=== PATIENT | female | born 1945 ===

== ENCOUNTER 2018-01-14 14:07 | Inpatient (IN) ==
--- NOTE | 2018-01-14 15:10 | ED ---
HPI General Chief Complaint: Psychiatric Symptoms Stated Complaint: Pysch Eval/ACT [place] Time Seen by Provider: 01/14/18 14:52 History of Present Illness HPI Narrative: The patient was seen and examined in the presence of the nurse. This patient is brought in under police [employer] act. She has some dementia and depression. She apparently did not take her medications today. I think there is some sort of verbal argument with her resulting in a call to the authorities. In any event she comes in under [employer] act. She denies any specific physical complaint. She denies hallucination or suicidal ideation. She seems pleasantly confused. Symptom severity is mild. Duration 2 days. No alleviating factors. No exacerbating factors. Related Data Home Medications Medication Instructions Recorded Confirmed fluoxetine [Prozac] 01/14/18 01/14/18 Allergies Allergy/AdvReac Type Severity Reaction Status Date / Time No Known Allergies Allergy Unverified 01/14/18 15:01 Review of Systems ROS: all other systems reviewed are negative [facility] [place] Medical History Medical History Breast cancer (Acute) Surgical History Surgical History History of total left knee replacement (TKR) (Acute) Social History Social History Substance History: No History of Abuse Second Hand Smoke Exposure: No Smoking Status: Never smoker How Often Do You Have a Drink Containing Alcohol: Never Exam Narrative Exam Narrative: GENERAL: Well-nourished, well-developed patient in no apparent distress. SKIN: Focused skin assessment reveals no rash and nodules. Skin is Warm and dry. HEAD: Atraumatic. Normocephalic. EYES: Pupils equal and round. No scleral icterus. No injection or drainage. ENT: No nasal bleeding or discharge. Mucous membranes pink and moist. NECK: Trachea midline. No JVD. I put the box of the CARDIOVASCULAR: Regular rate and rhythm. No murmur appreciated. RESPIRATORY: No accessory muscle use. Clear to auscultation. Breath sounds equal bilaterally. GASTROINTESTINAL: Abdomen soft, non-tender, nondistended. Hepatic and splenic margins not palpable. MUSCULOSKELETAL: No obvious deformities. No clubbing. No cyanosis. No edema. NEUROLOGICAL: Awake and alert. No obvious cranial nerve deficits. Motor grossly within normal limits. Normal speech. PSYCHIATRIC: Appropriate mood and affect; insight and judgment reduced . Course Initial Documented Vital Signs Temperature 98.3 F 01/14/18 15:02 Pulse Rate 84 01/14/18 15:02 Respiratory Rate 18 01/14/18 15:02 Blood Pressure 145/66 H 01/14/18 15:02 Pulse Oximetry 99 01/14/18 15:02 Last Documented Vital Signs Temperature 98.3 F 01/14/18 15:02 Pulse Rate 84 01/14/18 15:02 Respiratory Rate 18 01/14/18 15:02 Blood Pressure 145/66 H 01/14/18 15:02 Pulse Oximetry 99 01/14/18 15:02 Medical Decision Making MDM Narrative Medical decision making narrative: I have ordered medical clearance workup to include labs and urine studies. She has normal vital signs and no physical complaints. Psych screen has been ordered and she is here under Chacko act Clear labs are normal. She is is medically stable as can be made. Patient has been evaluated by psychiatry and she will be a psychiatric admission. Medical Screen Exam Complete: Yes Emergency Medical Condition: Yes Medical Records Medical records reviewed: Yes I reviewed the patient's medical records. Lab Data Result diagrams: 01/14/18 15:42 01/14/18 15:42 Lab Results 01/14/18 01/14/18 01/14/18 Range/Units 15:42 15:42 17:25 WBC 5.2 (4.0-11.0) th/mm3 RBC 4.00 (4.00-5.30) mil/mm3 Hgb 11.9 (11.6-15.3) gm/dL Hct 37.2 (35.0-46.0) % MCV 93.1 (80.0-100.0) fL MCH 29.7 (27.0-34.0) pg MCHC 31.9 L (32.0-36.0) % RDW 14.3 (11.6-17.2) % Plt Count 275 (150-450) th/mm3 MPV 8.2 (7.0-11.0) fL Neut % (Auto) 73.2 H (16.0-70.0) % Lymph % (Auto) 16.5 (9.0-44.0) % [place] % (Auto) 7.0 (0.0-8.0) % Eos % (Auto) 2.8 (0.0-4.0) % Baso % (Auto) 0.5 (0.0-2.0) % Neut # (Auto) 3.8 (1.8-7.7) th/mm3 Lymph # (Auto) 0.9 L (1.0-4.8) th/mm3 [place] # (Auto) 0.4 (0.0-0.9) th/mm3 Eos # (Auto) 0.1 (0.0-0.4) th/mm3 Baso # (Auto) 0.0 (0.0-0.2) th/mm3 WBC Differential . Differential Comment Auto diff final Sodium 141 (136-145) meq/L Potassium 4.4 (3.5-5.1) meq/L Chloride 104 (98-107) meq/L Carbon Dioxide 31.9 (21.0-32.0) meq/L Anion Gap 5 (5-15) meq/L BUN 31 H (7-18) mg/dL Creatinine 1.08 H (0.50-1.00) mg/dL Estimated GFR 50 L (>89) mL/min Random Glucose 92 (74-106) mg/dL Calcium 9.2 (8.5-10.1) mg/dL Total Bilirubin 0.3 (0.2-1.0) mg/dL AST 18 (15-37) U/L ALT 17 (10-53) U/L Alkaline Phosphatase 82 (45-117) U/L Total Protein 7.2 (6.4-8.2) g/dL Albumin 3.5 (3.4-5.0) g/dL TSH 0.417 (0.358-3.740) uIU/mL Urine Opiates Screen Neg (Neg) Ur Barbiturates Screen Neg (Neg) Ur Amphetamines Screen Neg (Neg) U Benzodiazepines Scrn Pos H (Neg) Urine Cocaine Screen Neg (Neg) U Cannabinoids Screen Neg (Neg) Serum Alcohol Less than 3 (0-5) mg/dL Discharge Plan Discharge Disposition Patient Disposition: 30 Still Patient Discharge Details Diagnosis: Acute psychosis Physicians Team ED Provider: Juan Nova Primary Care Provider: UNKNOWN, Rxs /Orders / Referrals /Forms Prescriptions: No Action fluoxetine [Prozac] 10 mg Capsule RF: 0 Status ED Status: Medically Cleared
[2018-01-14 16:01] LABS: Baso % (Auto) 0.5 % (0.0-2.0); Eos # (Auto) 0.1 th/mm3 (0.0-0.4); Eos % (Auto) 2.8 % (0.0-4.0); Hematocrit 37.2 % (35.0-46.0); Hemoglobin 11.9 gm/dL (11.6-15.3); Lymph # (Auto) 0.9 th/mm3 (1.0-4.8); Lymph % (Auto) 16.5 % (9.0-44.0); Mean Corpuscular HGB Conc 31.9 % (32.0-36.0); Mean Corpuscular Hemoglobin 29.7 pg (27.0-34.0); Mean Corpuscular Volume 93.1 fL (80.0-100.0); Mean Platelet Volume 8.2 fL (7.0-11.0); Mono # (Auto) 0.4 th/mm3 (0.0-0.9); Neut # (Auto) 3.8 th/mm3 (1.8-7.7); Neut % (Auto) 73.2 % (16.0-70.0); Platelet Count 275 th/mm3 (150-450); Red Cell Distribution Width 14.3 % (11.6-17.2); White Blood Count 5.2 th/mm3 (4.0-11.0)
[2018-01-14 16:30] LABS: Albumin 3.5 g/dL (3.4-5.0); Anion Gap 5 meq/L (5-15); Aspartate Aminotransferase 18 U/L (15-37); Blood Urea Nitrogen 31 mg/dL (7-18); Calcium 9.2 mg/dL (8.5-10.1); Carbon Dioxide 31.9 meq/L (21.0-32.0); Chloride 104 meq/L (98-107); Glomerular Filtration Rate 50 mL/min (>89); Glucose,Random 92 mg/dL (74-106); Potassium 4.4 meq/L (3.5-5.1); Sodium 141 meq/L (136-145)
[2018-01-14 16:32] LABS: Alanine Aminotransferase 17 U/L (10-53)
[2018-01-14 16:41] LABS: Alkaline Phosphatase 82 U/L (45-117); Thyroid Stimulating Hormone 0.417 uIU/mL (0.358-3.740); Total Protein 7.2 g/dL (6.4-8.2)
[2018-01-14 17:59] LABS: Amphetamine Screen,Urine Neg (Neg); Barbiturate Screen,Urine Neg (Neg); Cannabinoid Screen,Urine Neg (Neg); Cocaine Screen,Urine Neg (Neg)
[2018-01-14 18:06] LABS: Opiate Screen,Urine Neg (Neg)
[2018-01-14] MEDS ORDERED: Haloperidol Decanoate Inj 50 MG/ML Ampul IM ONE (19:09)
[2018-01-14] MEDS ORDERED: Haloperidol Inj 5 MG/ML Ampul IM ONE (19:15)
--- NOTE | 2018-01-14 19:17 | ED ---
HPI - Psych - General Source: patient Mode of arrival: ambulatory Limitations: no limitations - History of Present Illness MD complaint: altered mental status Onset (ago): unknown - General Chief Complaint: Psychiatric Symptoms Stated Complaint: Pysch Eval/ACT [place] Time Seen by Provider: 01/14/18 14:52 - History of Present Illness HPI Narrative: This is a 72 year-old female who presents under a Chacko Act for reportedly being aggressive and violent towards her . She is previously unknown to this facility. Reviewed electronic medical record, labs, and discussed case with staff. Patient was evaluated in her room in [facility]. She was observed coming out of her room and approaching staff multiple times. Throughout the visit she has been grossly confused and intrusive. She keeps requesting to go home. Patient is a poor historian. She is oriented to self only. Her speech is rapid, organized but at times illogical. The volume is loud. Attempted to obtain collateral information however, there is no contact information available. She speaks loudly about her father in [place], which she does have an accent, however it is apropos to nothing which has been asked of her. She appears to be sundowning. Patient became agitated and unable to be redirected, she was given an ETO. (Laurie Caballero) - Related Data Home Medications Medication Instructions Recorded Confirmed fluoxetine [Prozac] 01/14/18 01/14/18 Allergies Allergy/AdvReac Type Severity Reaction Status Date / Time No Known Allergies Allergy Unverified 01/14/18 15:01 Review of Systems All other systems reviewed negative except as stated in HPI PMFSH - History History Provided By: Patient - Medical History Medical History: Medical History (Last Reviewed 01/14/18 @ 20:48 by KODY Palomo) Breast cancer - Surgical History Surgical History: Surgical History (Last Reviewed 01/14/18 @ 20:48 by KODY Palomo) History of total left knee replacement (TKR) - Tobacco History Second Hand Smoke Exposure: No Smoking Status: Never smoker - Alcohol History How Often Do You Have a Drink Containing Alcohol: Never - Substance Use History Substance History: No History of Abuse - Immunization History Tetanus Immunization: Unsure Psychiatric History - Psychiatric History unable to obtain (Laurie Caballero) Physical Exam - General Limitations: altered mental status General appearance: anxious, in distress - Expanded Neurological Exam Patient oriented to: Present: person - Psychiatric Psychiatric exam: Present: agitated, anxious Mental Status Examination Appearance: Disheveled Consciousness: Highly distractible Orientation: Person Motor Activity: Normal gait Speech: Pressured, Rapid Language: Perseveration (on going home) Fund of Knowledge: Poor Attention and Concentration: Inadequate Memory: Impaired Mood: Anxious, Irritable Affect: Anxious Thought Process & Associations: Goal directed (on going home), Loose associations Hallucination Type: Other (unable to assess) Delusion Type: Other (unable) Insight: Poor Judgment: Poor Initial Documented Vital Signs Temperature 98.3 F 01/14/18 15:02 Pulse Rate 84 01/14/18 15:02 Respiratory Rate 18 01/14/18 15:02 Blood Pressure 145/66 H 01/14/18 15:02 Pulse Oximetry 99 01/14/18 15:02 Last Documented Vital Signs Temperature 98.3 F 01/14/18 15:02 Pulse Rate 84 01/14/18 15:02 Respiratory Rate 18 01/14/18 15:02 Blood Pressure 145/66 H 01/14/18 15:02 Pulse Oximetry 99 01/14/18 15:02 MDM - Psych - Diagnosis (1) Dementia with behavioral disturbance Status: Acute - Lab Data Result diagrams: 01/14/18 15:42 01/14/18 15:42 - [facility] Narrative Medical decision making narrative: Given the patient's level of confusion and her witnessed agitation/aggression, I am admitting her to a locked inpatient unit for further evaluation and treatment as deemed necessary. She is being admitted under the Chacko Act. (Laurie Caballero) - Lab Data Lab Results 01/14/18 01/14/18 01/14/18 Range/Units 15:42 15:42 17:25 WBC 5.2 (4.0-11.0) th/mm3 RBC 4.00 (4.00-5.30) mil/mm3 Hgb 11.9 (11.6-15.3) gm/dL Hct 37.2 (35.0-46.0) % MCV 93.1 (80.0-100.0) fL MCH 29.7 (27.0-34.0) pg MCHC 31.9 L (32.0-36.0) % RDW 14.3 (11.6-17.2) % Plt Count 275 (150-450) th/mm3 MPV 8.2 (7.0-11.0) fL Neut % (Auto) 73.2 H (16.0-70.0) % Lymph % (Auto) 16.5 (9.0-44.0) % [place] % (Auto) 7.0 (0.0-8.0) % Eos % (Auto) 2.8 (0.0-4.0) % Baso % (Auto) 0.5 (0.0-2.0) % Neut # (Auto) 3.8 (1.8-7.7) th/mm3 Lymph # (Auto) 0.9 L (1.0-4.8) th/mm3 [place] # (Auto) 0.4 (0.0-0.9) th/mm3 Eos # (Auto) 0.1 (0.0-0.4) th/mm3 Baso # (Auto) 0.0 (0.0-0.2) th/mm3 WBC Differential . Differential Comment Auto diff final Sodium 141 (136-145) meq/L Potassium 4.4 (3.5-5.1) meq/L Chloride 104 (98-107) meq/L Carbon Dioxide 31.9 (21.0-32.0) meq/L Anion Gap 5 (5-15) meq/L BUN 31 H (7-18) mg/dL Creatinine 1.08 H (0.50-1.00) mg/dL Estimated GFR 50 L (>89) mL/min Random Glucose 92 (74-106) mg/dL Calcium 9.2 (8.5-10.1) mg/dL Total Bilirubin 0.3 (0.2-1.0) mg/dL AST 18 (15-37) U/L ALT 17 (10-53) U/L Alkaline Phosphatase 82 (45-117) U/L Total Protein 7.2 (6.4-8.2) g/dL Albumin 3.5 (3.4-5.0) g/dL TSH 0.417 (0.358-3.740) uIU/mL Urine Opiates Screen Neg (Neg) Ur Barbiturates Screen Neg (Neg) Ur Amphetamines Screen Neg (Neg) U Benzodiazepines Scrn Pos H (Neg) Urine Cocaine Screen Neg (Neg) U Cannabinoids Screen Neg (Neg) Serum Alcohol Less than 3 (0-5) mg/dL
[2018-01-14] MEDS ORDERED: Aluminum/Magnesium/Simethacone Susp 30 ML UDC PO PRN (19:19)
[2018-01-14] MEDS ORDERED: Acetaminophen 325 MG Tablet PO PRN (19:19)
[2018-01-15] MEDS ORDERED: Aluminum/Magnesium/Simethacone Susp 30 ML UDC PO PRN (10:41)
[2018-01-15 10:44] LABS: Calcium 9.2 mg/dL (8.5-10.1); Carbon Dioxide 30.9 meq/L (21.0-32.0); Potassium 4.4 meq/L (3.5-5.1)
[2018-01-15 10:47] LABS: Chol/HDL Ratio 4.29 Ratio; HDL Cholesterol 52.2 mg/dL (40.0-60.0)
--- NOTE | 2018-01-15 11:16 | P.HPPSY ---
Provisional Diagnosis Admission Date: January 14, 2018 19:18 Fontanelle I.: Alzheimer's disease with late onset, dementia with behavioral disturbances Competence Certification of Person's Competence To Provide Express and Informed Consent I have personally examined Meenu Burton, a person being served at [facility] on, January 15, 2018 1113. Express and informed consent means consent voluntarily given in writing, by a competent person, after sufficient explanation and disclosure of the subject matter involved to enable the person to make a knowing and willful decision without any element of force, fraud, deceit, duress, or other form of constraint or coercion. This person is 18 years of age or older, is not now known to be incompetent to consent to treatment with a guardian advocate, and does not have a health care surrogate or proxy currently making medical treatment decisions. I have found this person to be one of the following: [] Competent to provide express and informed consent, as defined above, for voluntary admission to this facility and is competent to provide express and informed consent for treatment. He/she has the consistent capacity to make well reasoned, willful, and knowing decisions concerning his or her medical or mental health treatment. The person fully and consistently understands the purpose of the admission for examination/placement and is fully capable of personally exercising all rights assured under [place]xxx] Incompetent to provide express and informed consent to voluntary admission , and this is incompetent to provide express and informed consent to treatment. The person must be transferred to involuntary status and a petition for a guardian advocate filed with the Circuit Court. [] Refusing to provide express and informed consent to voluntary admission but is competent to provide express and informed consent for treatment. The person must be discharged or transferred to involuntary status. Form shall be completed within 24 hours of a person's arrival at the receiving facility and filed in the clinical record of each person: 1. Admitted on a voluntary basis 2. Permitted to provide express and informed consent to his/her own treatment 3. Allowed to transfer from involuntary to voluntary status 4. Prior to permitting a person to consent to his or her own treatment after having been previously found incompetent to consent to treatment. History of Present Illness Capacity: Lacks capacity History of Present Illness: Patient is a 72-year-old female who comes here under Ch[place]o act by the [facility] dated 01/14/2018 at 12:51 PM that document reviewed states this is Micheal has dementia becomes aggravated and is not taking her medication very disoriented and unaware of what is going on around her getting violent with he believes she needs to be evaluated without being evaluated she can be danger to herself or others around her patient seen screen in the ED urine toxicology positive for benzodiazepines. Patient did need an DTO in the emergency department. At the present time patient standing quietly in the hallway patient seen with nurse Elida. Patient is alert female speaking some broken [place] she is intense with rapid pressured speech her volume was quite loud she is diffusely confused in all 4 spheres. Review of EMR shows no prior contact here. Reviewing of medical records showed the patient has an address [place] but there is no contact data available at this time. We have had an EKG done and it is abnormal we will have the hospitalist consult will us with at this point feel patient does not have capacity to make decisions concerning her care thus I will ask for health care surrogate and guardian advocate. We will refrain from any scheduled medications at this time. The only thing of the med reconciliation was a small dose of Prozac and we will put that on hold at the present time. Continue to try to reach family get some more information about this patient help us with diagnosis treatment and recommendations - Inpatient Certification I certify that the inpatient services were ordered in accordance with Medicare regulations governing the order. This includes certification that hospital inpatient services are reasonable and necessary and in the case of services not specified as inpatient-only under 42 CFR 419.22(n), that they are appropriately provided as inpatient services in accordance to with the 2-midnight benchmark under 43 CFR 412.3(e) I certify that inpatient psychiatric hospital services are medically necessary. Evaluation and treatment and/or diagnostic testing are expected to improve the patient's condition. The patient needs on a daily basis, active treatment furnished directly by or requiring the supervision of inpatient psychiatric facility personnel. Estimated Total Length of Stay (Days): 7 Plans for Post Hospital Care: Not yet determined Review of Systems unobtainable due to mental condition PMFSH - History History Provided By: Patient - Medical History Medical History: Medical History (Last Reviewed 01/14/18 @ 20:48 by KODY Palomo) Breast cancer - Surgical History Surgical History: Surgical History (Last Reviewed 01/14/18 @ 20:48 by KODY Palomo) History of total left knee replacement (TKR) - Tobacco History Second Hand Smoke Exposure: No Smoking Status: Never smoker - Alcohol History How Often Do You Have a Drink Containing Alcohol: Never - Substance Use History Substance History: No History of Abuse - Immunization History Tetanus Immunization: Unsure Quality Measures - Psychiatric History Psychological trauma history: Unknown at this time Violence risk to others in the last 6 months: Documentation of patient being violent towards Violence risk to self in the last 6 months: Low - Substance Abuse History Drug or alcohol use in the past 12 months: Unknown at this time - Patient Strengths Patient's strengths (minimum of 2): Patient verbal able access healthcare Medications and Allergies Active Medications: Active Medications Acetaminophen (Tylenol) 650 mg PO Q4H PRN PRN Reason: Pain 1-5 or Temp >101F Al Hydrox/Mg Hydrox/Simethicone (Mag-Al Plus Susp Liq) 30 ml PO Q6H PRN PRN Reason: DYSPEPSIA Al Hydrox/Mg Hydrox/Simethicone (Mag-Al Plus Susp Liq) 30 ml PO Q6H PRN PRN Reason: DYSPEPSIA Al Hydroxide/Mg Hydroxide (Milk Of Magnesia Liq) 30 ml PO Q12H PRN PRN Reason: Mild Constipation Diphenhydramine HCl (Benadryl) 50 mg PO HS PRN PRN Reason: INSOMNIA Allergies Allergy/AdvReac Type Severity Reaction Status Date / Time No Known Allergies Allergy Unverified 01/14/18 15:01 Home Medications Medication Instructions Recorded Confirmed Type fluoxetine [Prozac] 01/14/18 01/14/18 History Results - Labs CBC & Chem 7: 01/14/18 15:42 01/15/18 08:55 Labs: Laboratory Results - last 24 hr 01/14/18 01/14/18 01/14/18 15:42 15:42 17:25 WBC 5.2 RBC 4.00 Hgb 11.9 Hct 37.2 MCV 93.1 MCH 29.7 MCHC 31.9 L RDW 14.3 Plt Count 275 MPV 8.2 Neut % (Auto) 73.2 H Lymph % (Auto) 16.5 Smith % (Auto) 7.0 Eos % (Auto) 2.8 Baso % (Auto) 0.5 Neut # (Auto) 3.8 Lymph # (Auto) 0.9 L Smith # (Auto) 0.4 Eos # (Auto) 0.1 Baso # (Auto) 0.0 WBC Differential . Differential Comment Auto diff final Sodium 141 Potassium 4.4 Chloride 104 Carbon Dioxide 31.9 Anion Gap 5 BUN 31 H Creatinine 1.08 H Estimated GFR 50 L Random Glucose 92 Calcium 9.2 Total Bilirubin 0.3 AST 18 ALT 17 Alkaline Phosphatase 82 Total Protein 7.2 Albumin 3.5 Triglycerides Cholesterol LDL Cholesterol, Calc HDL Cholesterol Cholesterol/HDL Ratio TSH 0.417 Urine Opiates Screen Neg Ur Barbiturates Screen Neg Ur Amphetamines Screen Neg U Benzodiazepines Scrn Pos H Urine Cocaine Screen Neg U Cannabinoids Screen Neg Serum Alcohol Less than 3 01/15/18 08:55 WBC RBC Hgb Hct MCV MCH MCHC RDW Plt Count MPV Neut % (Auto) Lymph % (Auto) Smith % (Auto) Eos % (Auto) Baso % (Auto) Neut # (Auto) Lymph # (Auto) Smith # (Auto) Eos # (Auto) Baso # (Auto) WBC Differential Differential Comment Sodium 142 Potassium 4.4 Chloride 103 Carbon Dioxide 30.9 Anion Gap 8 BUN 23 H Creatinine 0.99 Estimated GFR 55 L Random Glucose 131 H Calcium 9.2 Total Bilirubin AST ALT Alkaline Phosphatase Total Protein Albumin Triglycerides 196 H Cholesterol 224 H LDL Cholesterol, Calc 133 H HDL Cholesterol 52.2 Cholesterol/HDL Ratio 4.29 TSH Urine Opiates Screen Ur Barbiturates Screen Ur Amphetamines Screen U Benzodiazepines Scrn Urine Cocaine Screen U Cannabinoids Screen Serum Alcohol Exam Vital signs: Vital Signs 01/14/18 15:02 01/14/18 20:30 01/15/18 06:14 Temperature 98.3 F 97.8 F 97.5 F L Pulse Rate 84 80 78 Respiratory Rate 18 17 17 Blood Pressure 145/66 H 156/74 H 160/67 H Pulse Oximetry 99 98 96 Intake & Output 01/14/18 01/15/18 01/15/18 18:59 06:59 18:59 Weight 79.379 kg 90.2 kg Other: Weight On Admission 90.2 kg Narrative: Patient seen walking and lui she is in no acute distress, she is in no respiratory distress, no complaints of chest pain or abdominal pain. Patient moving all 4 extremities without difficulty Mental Status Examination Appearance: Disheveled (Mildly) Consciousness: Alert, Highly distractible Orientation: Person Motor Activity: Normal gait Speech: Pressured, Rapid Language: Perseveration (on going home) Fund of Knowledge: Poor Attention and Concentration: Inadequate Memory: Impaired Mood: Anxious, Irritable Affect: Anxious Thought Process & Associations: Loose associations, Tangential Thought Content: Other (Disorganized) Hallucination Type: Other (unable to assess) Delusion Type: Other (unable) Suicidal Ideation: No Suicidal Plan: No Suicidal Intention: No Homicidal Ideation: No Homicidal Plan: No Homicidal Intention: No Insight: Poor Judgment: Poor Assessment and Plan - Assessment (1) Dementia in other diseases classified elsewhere with behavioral disturbance Code(s): F02.81 - Dementia in other diseases classified elsewhere with behavioral disturbance Status: Acute (2) Alzheimer's disease with late onset Code(s): G30.1 - Alzheimer's disease with late onset; F02.80 - Dementia in other diseases classified elsewhere without behavioral disturbance Status: Acute - Plan Plan: Estimated LOS: [] days Patient remains quite demented confused and somewhat labile. She does meet Chacko criteria I will do first opinion request second opinion I will also ask for health care surrogate and guardian advocate. She does have an abnormal EKG we will have hospitalist consult with that also. We will also attempt to reach patient's family to get further information about this lady Justification for Continued Inpatient Stay: At this time patient would decompensate a place to a lower level of care Discharge Planning: To be determined Request Healthcare Surrogate/Guardian Advocate?: Yes
[2018-01-15] MEDS ORDERED: Haloperidol Inj 5 MG/ML Ampul IM STA (12:35)
[2018-01-15] MEDS ORDERED: Haloperidol Inj 5 MG/ML Ampul ONE (15:13)
--- NOTE | 2018-01-15 15:33 | P.CONPSY ---
Provisional Diagnosis Admission Date: January 14, 2018 19:18 [place].: Alzheimer's disease with late onset, dementia with behavioral disturbances History of Present Illness Service: Psychiatry Primary Care Provider: UNKNOWN History of Present Illness: Patient is a 72-year-old female who comes here under Chacko act by the [facility] dated 01/14/2018 at 12:51 PM that document reviewed states this is Micheal has dementia becomes aggravated and is not taking her medication very disoriented and unaware of what is going on around her getting violent with he believes she needs to be evaluated without being evaluated she can be danger to herself or others around her patient seen screen in the ED urine toxicology positive for benzodiazepines. Patient did need an DTO in the emergency department. At the present time patient standing quietly in the hallway patient seen with nurse Elida. Patient is alert female speaking some broken Rwandan she is intense with rapid pressured speech her volume was quite loud she is diffusely confused in all 4 spheres. Review of EMR shows no prior contact here. Reviewing of medical records showed the patient has an address [place] but there is no contact data available at this time. We have had an EKG done and it is abnormal we will have the hospitalist consult will us with at this point feel patient does not have capacity to make decisions concerning her care thus I will ask for health care surrogate and guardian advocate. We will refrain from any scheduled medications at this time. The only thing of the med reconciliation was a small dose of Prozac and we will put that on hold at the present time. Continue to try to reach family get some more information about this patient help us with diagnosis treatment and recommendations The patient is a 72-year-old American woman, she is bilingual, but mostly Syriac speaker, with reported psychiatric history of dementia and bipolar disorder, who was brought to the hospital on the Chacko act due to aggressive behavior with her . Consulted to me for second opinion. On my psychiatric evaluation I find a patient that is quite disorganized, loud, cursing and voice and paranoid and grandiose statements in the unit. The patient states that she is going to sonu the hospital, that her father was the governor of [place], or her siblings are chief design branch, her kids are studying medicine in the [employer] [facility], that she has special connection and if she is is not discharged immediately we are going to pay the consequences. Patient is very disorganized, tangential, difficult to be redirected verbally. He has been refusing to eat and to take medications per [facility] - History History Provided By: Patient - Medical History Medical History: Medical History (Last Reviewed 01/14/18 @ 20:48 by KODY Palomo) Breast cancer - Surgical History Surgical History: Surgical History (Last Reviewed 01/14/18 @ 20:48 by KODY Palomo) History of total left knee replacement (TKR) - Tobacco History Second Hand Smoke Exposure: No Smoking Status: Never smoker - Alcohol History How Often Do You Have a Drink Containing Alcohol: Never - Substance Use History Substance History: No History of Abuse - Immunization History Tetanus Immunization: Unsure Medications and Allergies Active Medications: Active Medications Acetaminophen (Tylenol) 650 mg PO Q4H PRN PRN Reason: Pain 1-5 or Temp >101F Al Hydrox/Mg Hydrox/Simethicone (Mag-Al Plus Susp Liq) 30 ml PO Q6H PRN PRN Reason: DYSPEPSIA Al Hydrox/Mg Hydrox/Simethicone (Mag-Al Plus Susp Liq) 30 ml PO Q6H PRN PRN Reason: DYSPEPSIA Al Hydroxide/Mg Hydroxide (Milk Of Magnesia Liq) 30 ml PO Q12H PRN PRN Reason: Mild Constipation Diphenhydramine HCl (Benadryl) 50 mg PO HS PRN PRN Reason: INSOMNIA Allergies Allergy/AdvReac Type Severity Reaction Status Date / Time No Known Allergies Allergy Unverified 01/14/18 15:01 Home Medications Medication Instructions Recorded Confirmed Type fluoxetine [Prozac] 40 mg PO DAILY 01/14/18 01/15/18 History alprazolam [Xanax] 0.5 mg PO TID 01/15/18 01/15/18 History carvedilol [Coreg] 6.25 mg PO BID 01/15/18 01/15/18 History cyclobenzaprine 10 mg PO TID 01/15/18 01/15/18 History hydrocodone-acetaminophen 10 - 325 mg PO Q6HR 01/15/18 01/15/18 History losartan 50 mg PO DAILY 01/15/18 01/15/18 History metformin 500 mg PO DAILY 01/15/18 01/15/18 History omeprazole magnesium [Prilosec] 20 mg PO DAILY 01/15/18 01/15/18 History temazepam [Restoril] 30 mg PO DAILY 01/15/18 01/15/18 History Exam Vital signs: Vital Signs 01/14/18 20:30 01/15/18 06:14 Temperature 97.8 F 97.5 F L Pulse Rate 80 78 Respiratory Rate 17 17 Blood Pressure 156/74 H 160/67 H Pulse Oximetry 98 96 Intake & Output 01/14/18 01/15/18 01/15/18 18:59 06:59 18:59 Weight 79.379 kg 90.2 kg Other: Weight On Admission 90.2 kg Mental Status Examination Appearance: Disheveled (Mildly) Consciousness: Alert, Highly distractible Orientation: Person Motor Activity: Normal gait Speech: Pressured, Rapid Language: Perseveration (on going home) Fund of Knowledge: Poor Attention and Concentration: Inadequate Memory: Impaired Mood: Anxious, Irritable Affect: Anxious Thought Process & Associations: Loose associations, Tangential Thought Content: Other (Disorganized) Hallucination Type: Other (unable to assess) Delusion Type: Other (unable) Suicidal Ideation: No Suicidal Plan: No Suicidal Intention: No Homicidal Ideation: No Homicidal Plan: No Homicidal Intention: No Insight: Poor Judgment: Poor Assessment and Plan - Assessment (1) Dementia in other diseases classified elsewhere with behavioral disturbance Code(s): F02.81 - Dementia in other diseases classified elsewhere with behavioral disturbance Status: Acute (2) Alzheimer's disease with late onset Code(s): G30.1 - Alzheimer's disease with late onset; F02.80 - Dementia in other diseases classified elsewhere without behavioral disturbance Status: Acute - Plan Plan: I have seen and examined this patient, reviewed documentation, I agree and concur with Dr. Reynoso's assessment and plan. Justification for Continued Inpatient Stay: Patient will continue psychiatric hospitalization under the care of Dr. Reynoso Request Healthcare Surrogate/Guardian Advocate?: Yes
--- NOTE | 2018-01-15 16:02 | P.CON ---
History of Present Illness Service: [facility] Consult date: 01/15/18 Requesting Physician: Aleksandar Reynoso Reason for Consult: Abnormal EKG Primary Care Provider: UNKNOWN Chief Complaint: "Bugs crawling" History of Present Illness: Patient is a 72-year-old female with past medical history of dementia, breast cancer who initially came into the hospital under Chacko act by the police. Patient is not taking her medications and had a verbal argument with . She is now admitted to inpatient psychiatry and for further evaluation. Consulted for assistance with abnormal EKG Patient seen today. Very agitated and belligerent. Patient appears to be hallucinating telling me to "run away the bugs are all over crawling on the floor and into the ceiling and into the walhs." Vision alternating Wallisian and Estonian. She is very agitated and yelling. She was given multiple IM injections to calm her down but was unable to. Staff is transferring the patient is a 2700 into seclusion unit. Review of Systems unobtainable due to mental condition, unobtainable due to mental status PMFSH - History History Provided By: Patient - Medical / Surgical Hx Neg / Unobtainable Medical Problems Denied: Unable to Obtain - Medical History Medical History: Medical History (Last Reviewed 01/14/18 @ 20:48 by KODY Palomo) Breast cancer - Surgical History Surgical History: Surgical History (Last Reviewed 01/14/18 @ 20:48 by KODY Palomo) History of total left knee replacement (TKR) - Tobacco History Second Hand Smoke Exposure: No Smoking Status: Never smoker - Alcohol History How Often Do You Have a Drink Containing Alcohol: Never - Substance Use History Substance History: No History of Abuse - Immunization History Tetanus Immunization: Unsure Medications and Allergies Active Medications: Active Medications Acetaminophen (Tylenol) 650 mg PO Q4H PRN PRN Reason: Pain 1-5 or Temp >101F Al Hydrox/Mg Hydrox/Simethicone (Mag-Al Plus Susp Liq) 30 ml PO Q6H PRN PRN Reason: DYSPEPSIA Al Hydrox/Mg Hydrox/Simethicone (Mag-Al Plus Susp Liq) 30 ml PO Q6H PRN PRN Reason: DYSPEPSIA Al Hydroxide/Mg Hydroxide (Milk Of Magnesia Liq) 30 ml PO Q12H PRN PRN Reason: Mild Constipation Diphenhydramine HCl (Benadryl) 50 mg PO HS PRN PRN Reason: INSOMNIA Allergies Allergy/AdvReac Type Severity Reaction Status Date / Time No Known Allergies Allergy Unverified 01/14/18 15:01 Home Medications Medication Instructions Recorded Confirmed Type fluoxetine [Prozac] 40 mg PO DAILY 01/14/18 01/15/18 History alprazolam [Xanax] 0.5 mg PO TID 01/15/18 01/15/18 History carvedilol [Coreg] 6.25 mg PO BID 01/15/18 01/15/18 History cyclobenzaprine 10 mg PO TID 01/15/18 01/15/18 History hydrocodone-acetaminophen 10 - 325 mg PO Q6HR 01/15/18 01/15/18 History losartan 50 mg PO DAILY 01/15/18 01/15/18 History metformin 500 mg PO DAILY 01/15/18 01/15/18 History omeprazole magnesium [Prilosec] 20 mg PO DAILY 01/15/18 01/15/18 History temazepam [Restoril] 30 mg PO DAILY 01/15/18 01/15/18 History Physical Exam Vital signs: Vital Signs 01/14/18 20:30 01/15/18 06:14 Temperature 97.8 F 97.5 F L Pulse Rate 80 78 Respiratory Rate 17 17 Blood Pressure 156/74 H 160/67 H Pulse Oximetry 98 96 Intake & Output 01/14/18 01/15/18 01/15/18 18:59 06:59 18:59 Weight 79.379 kg 90.2 kg Other: Weight On Admission 90.2 kg Narrative: GENERAL: This is a well-nourished, well-developed patient, in no apparent distress. SKIN: Warm and dry. HEENT: Normocephalic. .Airway patent. NECK: Trachea midline.. MUSCULOSKELETAL: Extremities without clubbing, cyanosis, or edema. NEUROLOGICAL: Awake and alert. Normal speech. Agitated, yelling, grabbing, attempts to bite staff. Assessment and Plan - Plan Patient is a 72-year-old female with past medical history of dementia, breast cancer who initially came into the hospital under Chacko act by the police. Patient is not taking her medications and had a verbal argument with . She is now admitted to inpatient psychiatry and for further evaluation. Consulted for assistance with abnormal EKG Dementia with behavioral disturbance -Managed by psychiatry team -Severely agitated today. Abnormal EKG -Unknown history of ID, HTN, HLD -EKG reviewed sinus rhythm with intraventricular conduction delay, possible anterior myocardial infarction undetermined date. AVR with inverted T waves. LVH. -QTc 440 -Repeat EKG when patient is more cooperative -Repeat labs, ASA daily -Nitro PRN HLD -Lipid profile reviewed, ASCVD risk 14.6% -Will Start statin medication DVT prop early ambulation. Code Status: Full code Discussed Condition With: Patient, nursing Discharge Planning: DC disposition by primary team
[2018-01-15] MEDS ORDERED: Haloperidol Inj 5 MG/ML Ampul IM ONE (16:15)
[2018-01-15] MEDS ORDERED: Dextrose 50% in Water 50 ML Vial IV.PUSH PRN (18:33)
--- NOTE | 2018-01-15 19:29 | ECG ---
Date Performed: 01/15/2018 Time Performed: 10:10:07 PTAGE: 72 years EKG: Sinus rhythm INTRAVENTRICULAR CONDUCTION DELAY POSSIBLE ANTERIOR MYOCARDIAL INFARCTION , OF INDETERMINATE AGE ABN ORMAL ECG NO PREVIOUS TRACING DOCTOR: Dillon Mejia Interpretating Date/Time 01/15/2018 19:28:17
--- NOTE | 2018-01-15 19:51 | XR ---
EXAM DATE: 01/15/2018 7:48 PM EDT AGE/SEX: 72 years / Female INDICATIONS: Left hand swelling with no known injury. CLINICAL DATA: This is the patient's initial encounter. Patient reports that signs and symptoms have been present for 1 day and indicates a pain score of Nonresponsive. MEDICAL/SURGICAL HISTORY: None. None. COMPARISON: No prior exams available for comparison. FINDINGS: Bony structures are intact and in normal alignment. Diffuse osteopenia. Soft tissues are unremarkabl e. No radiopaque foreign bodies seen. CONCLUSION: The osseous structures the hand are grossly intact. Electronically signed by: Manoj Vela MD 01/15/2018 7:49 PM EDT
--- NOTE | 2018-01-15 19:52 | XR ---
EXAM DATE: 01/15/2018 7:49 PM EDT AGE/SEX: 72 years / Female INDICATIONS: Right hand swelling with no known injury. CLINICAL DATA: This is the patient's initial encounter. Patient reports that signs and symptoms have been present for 1 day and indicates a pain score of Nonresponsive. MEDICAL/SURGICAL HISTORY: None. None. COMPARISON: No prior exams available for comparison. FINDINGS: Bony structures are intact and in normal alignment. Diffuse osteopenia. There is some amorphous calc ification about capsule of the third digit MCP joint. Soft tissues are unremarkable. No radiopaque f oreign bodies seen. CONCLUSION: The osseous structures the hand are grossly intact. Electronically signed by: Manoj Vela MD 01/15/2018 7:50 PM EDT
[2018-01-15] MEDS: Insulin NovoLOG Aspart Correctional Sugar Inj SQ SCH (20:55)
--- NOTE | 2018-01-15 21:00 | XR ---
EXAM DATE: 01/15/2018 7:51 PM EDT AGE/SEX: 72 years / Female INDICATIONS: Right wrist swelling with no known injury. CLINICAL DATA: This is the patient's initial encounter. Patient reports that signs and symptoms have been present for 1 day and indicates a pain score of Nonresponsive. MEDICAL/SURGICAL HISTORY: None. None. COMPARISON: No prior exams available for comparison. FINDINGS: Bony structures are intact and in normal alignment. Joints are intact without dislocation or signifi cant arthropathy. Osseous density is normal. Soft tissues are unremarkable. No radiopaque foreign bodies seen. CONCLUSION: Negative examination Electronically signed by: Manoj Vela MD 01/15/2018 8:58 PM EDT
[2018-01-15] MEDS: Carvedilol 6.25 MG Tablet PO SCH (21:20)
[2018-01-15] MEDS ORDERED: Haloperidol Inj 5 MG/ML Ampul IM PRN (22:00)
[2018-01-16] MEDS: Pantoprazole Sodium 20 MG DR Tablet PO SCH (08:02)
[2018-01-16] MEDS: Carvedilol 6.25 MG Tablet PO SCH ×2 (08:02→20:18)
[2018-01-16] MEDS ORDERED: OMEPRAZOLE MAGNESIUM 20 MG PO SCH (09:00)
[2018-01-16] MEDS: Insulin NovoLOG Aspart Correctional Sugar Inj SQ SCH ×3 (09:36→20:16)
--- NOTE | 2018-01-16 13:45 | P.PNPSY ---
Subjective Remarks: Patient seen in her room with nurse less, patient compliant medications. Patient continues quite intense and labile speaking in mixed Bahraini/Dutch is markedly disorganized within the. He denies suicidality or voices.. She states she wants to go home to her . That he is waiting for her however staff as heard from that he is somewhat concerned about his coming home due to her violent aggressive behaviors towards I attempted to call him at [phone] in there is no answer. We will continue to attempt to reach him. I feel patient would benefit from a mood stabilizer/antipsychotic medication. Review of Systems All other systems reviewed negative except as stated in HPI Mental Status Examination Appearance: Disheveled (Mildly) Consciousness: Alert, Highly distractible Orientation: Person Motor Activity: Normal gait Speech: Pressured, Rapid Language: Perseveration (on going home) Fund of Knowledge: Poor Attention and Concentration: Inadequate Memory: Impaired Mood: Anxious, Irritable Affect: Anxious Thought Process & Associations: Loose associations, Tangential Thought Content: Other (Disorganized) Hallucination Type: Other (unable to assess) Delusion Type: Other (unable) Suicidal Ideation: No Suicidal Plan: No Suicidal Intention: No Homicidal Ideation: No Homicidal Plan: No Homicidal Intention: No Insight: Poor Judgment: Poor Assessment and Plan - Assessment (1) Dementia in other diseases classified elsewhere with behavioral disturbance Code(s): F02.81 - Dementia in other diseases classified elsewhere with behavioral disturbance Status: Acute (2) Alzheimer's disease with late onset Code(s): G30.1 - Alzheimer's disease with late onset; F02.80 - Dementia in other diseases classified elsewhere without behavioral disturbance Status: Acute - Plan Plan: Patient remained psychotic and confused, intrusive and labile with no significant insight will continue to attempt to reach patient's to get permission for medication Justification for Continued Inpatient Stay: At this time patient would decompensate a place to a lower level of care Discharge Planning: To be determined Request Healthcare Surrogate/Guardian Advocate?: Yes
--- NOTE | 2018-01-16 21:21 | ECG ---
Date Performed: 01/16/2018 Time Performed: 09:22:20 PTAGE: 72 years EKG: Sinus rhythm MARKED LEFT AXIS DEVIATION INTRAVENTRICULAR CONDUCTION DELAY ABNORMAL ECG PREVIOUS TRACING : 01/15/2018 10.10 Since the previous tracing, no significant change noted DOCTOR: Dillon Mejia Interpretating Date/Time 01/16/2018 21:19:11
[2018-01-17] MEDS: Insulin NovoLOG Aspart Correctional Sugar Inj SQ SCH ×3 (08:22→21:18)
[2018-01-17] MEDS: Pantoprazole Sodium 20 MG DR Tablet PO SCH (08:23)
[2018-01-17] MEDS: Carvedilol 6.25 MG Tablet PO SCH ×2 (08:23→21:16)
--- NOTE | 2018-01-17 11:52 | P.PNPSY ---
Subjective Remarks: Patient seen and lui with nurse Kaye, chart reviewed, at this time patient no behavior problems, she is focusing on discharge and wanting to return to her family. While she speaks broken Korean or understanding appears fairly good. Though her insight and processing social somewhat confusing. We will add Seroquel 25 mg noon and 8 PM Review of Systems All other systems reviewed negative except as stated in HPI Mental Status Examination Appearance: Disheveled (Mildly) Consciousness: Alert, Highly distractible Orientation: Person Motor Activity: Normal gait Speech: Pressured, Rapid Language: Perseveration (on going home) Fund of Knowledge: Poor Attention and Concentration: Inadequate Memory: Impaired Mood: Anxious, Irritable Affect: Anxious Thought Process & Associations: Loose associations, Tangential Thought Content: Other (Disorganized) Hallucination Type: Other (unable to assess) Delusion Type: Other (unable) Suicidal Ideation: No Suicidal Plan: No Suicidal Intention: No Homicidal Ideation: No Homicidal Plan: No Homicidal Intention: No Insight: Poor Judgment: Poor Assessment and Plan - Assessment (1) Dementia in other diseases classified elsewhere with behavioral disturbance Code(s): F02.81 - Dementia in other diseases classified elsewhere with behavioral disturbance Status: Acute (2) Alzheimer's disease with late onset Code(s): G30.1 - Alzheimer's disease with late onset; F02.80 - Dementia in other diseases classified elsewhere without behavioral disturbance Status: Acute - Plan Plan: Patient remains confused disoriented. No behavior problems at this time. She medication adjustment above Justification for Continued Inpatient Stay: At this time patient would decompensate a place to a lower level of care Discharge Planning: To be determined it appears family does not feel she can return home, in fact daughters feel that perhaps patient and her elderly both may need placement Request Healthcare Surrogate/Guardian Advocate?: Yes
--- NOTE | 2018-01-17 15:34 | P.PN ---
Subjective Interval history: Follow-up visit dementia, HTN, HLD. Patient seen and examined today. Portuguese- speaking. States she is from [place], originally and the she came from prominent family. States that she was to her about 50 years that she could not believe that this had happened to him. She is asking if he could call her to give her money while she is on the unit. Appears to be calm compared to prior visit. Denies pain and discomfort. Denies SOB/ dyspnea. Denies chest pain, palpitations, headaches, dizziness. Denies fevers, chills, n/v/d. Physical Exam Vital signs: Intake & Output 01/16/18 01/17/18 01/17/18 18:59 06:59 18:59 Weight 88 kg Narrative: GENERAL: This is a well-nourished, well-developed patient, in no apparent distress. SKIN: Warm and dry HEENT: Normocephalic. Pupils equal round and reactive. Nose without bleeding. Airway patent. NECK: Trachea midline. CARDIOVASCULAR: Regular rate and rhythm without murmurs, gallops, or rubs. RESPIRATORY: Clear to auscultation. Breath sounds equal bilaterally. No wheezes , rales, or rhonchi. GASTROINTESTINAL: Abdomen soft, non-tender, nondistended. Bowel Sounds normoactive x4. MUSCULOSKELETAL: Extremities without clubbing, cyanosis, or edema. NEUROLOGICAL: Awake and alert. Oriented to place, person. Moves all extremities. Normal speech. Results - Labs CBC & Chem 7: 01/14/18 15:42 01/15/18 21:46 Laboratory Results - last 24 hr 01/16/18 01/16/18 01/17/18 16:33 19:45 05:55 POC Glucose 108 108 113 H 01/17/18 07:57 POC Glucose 131 H Assessment and Plan - Plan Patient is a 72-year-old female with past medical history of dementia, breast cancer who initially came into the hospital under Chacko act by the police. Patient is not taking her medications and had a verbal argument with . She is now admitted to inpatient psychiatry and for further evaluation. Consulted for assistance with abnormal EKG Dementia with behavioral disturbance -Managed by psychiatry team -Calm and cooperative HTN HLD -Lipid profile reviewed, ASCVD risk 14.6% -Continue Lipitor -Continue home medication Coreg, aspirin, losartan 50 mg clonidine as needed -BP has improved. DM2 on metformin use at home, no insulin -Continue metformin -Insulin sliding scale. Monitor Accu-Cheks. -HgA1C 6.0 Abnormal EKG -EKG reviewed sinus rhythm with intraventricular conduction delay, possible anterior myocardial infarction undetermined date. AVR with inverted T waves. LVH. -Repeat EKG sinus rhythm with marked left axis deviation, no significant change compared to previous EKG -Denies symptomatology -Maintain BP DVT prop early ambulation Stable from Hospitalist standpoint. We will sign off. Reconsult as needed. Code Status: Full code Discussed Condition With: Patient, nursing Discharge Planning: DC disposition by primary team
[2018-01-17] MEDS: QUEtiapine 25 MG Tablet PO SCH ×2 (15:53→20:00)
[2018-01-18] MEDS: Insulin NovoLOG Aspart Correctional Sugar Inj SQ SCH ×4 (07:23→21:13)
[2018-01-18] MEDS: Carvedilol 6.25 MG Tablet PO SCH ×2 (08:58→21:30)
[2018-01-18] MEDS: Pantoprazole Sodium 20 MG DR Tablet PO SCH (08:58)
[2018-01-18] MEDS: QUEtiapine 25 MG Tablet PO SCH ×2 (11:31→21:30)
--- NOTE | 2018-01-18 13:41 | P.PNPSY ---
Subjective Remarks: Patient is seen in day room with floor staff, chart review, patient compliant medication. Patient continues superficially pleasant with me diffusely confused. No behavior problem. Chi is discharged to go back to her and family's. Patient still with no insight into her behaviors that led to this hospitalization. For now continue treatment Review of Systems All other systems reviewed negative except as stated in HPI Mental Status Examination Appearance: Disheveled (Mildly) Consciousness: Alert, Highly distractible Orientation: Person Motor Activity: Normal gait Speech: Pressured, Rapid Language: Perseveration (on going home) Fund of Knowledge: Poor Attention and Concentration: Inadequate Memory: Impaired Mood: Anxious, Irritable Affect: Anxious Thought Process & Associations: Loose associations, Tangential Thought Content: Other (Disorganized) Hallucination Type: Other (unable to assess) Delusion Type: Other (unable) Suicidal Ideation: No Suicidal Plan: No Suicidal Intention: No Homicidal Ideation: No Homicidal Plan: No Homicidal Intention: No Insight: Poor Judgment: Poor Assessment and Plan - Assessment (1) Dementia in other diseases classified elsewhere with behavioral disturbance Code(s): F02.81 - Dementia in other diseases classified elsewhere with behavioral disturbance Status: Acute (2) Alzheimer's disease with late onset Code(s): G30.1 - Alzheimer's disease with late onset; F02.80 - Dementia in other diseases classified elsewhere without behavioral disturbance Status: Acute - Plan Plan: Patient continues confused demented though no behavior problems at the present time, compliant medications. For now continue treatment Justification for Continued Inpatient Stay: At this time patient would decompensate a place to a lower level of care Discharge Planning: Continue to work with patient's family related to placement issues Request Healthcare Surrogate/Guardian Advocate?: Yes
[2018-01-19] MEDS: Insulin NovoLOG Aspart Correctional Sugar Inj SQ SCH ×4 (07:19→21:12)
[2018-01-19] MEDS: Pantoprazole Sodium 20 MG DR Tablet PO SCH (08:36)
[2018-01-19] MEDS: Carvedilol 6.25 MG Tablet PO SCH ×2 (08:37→21:07)
[2018-01-19] MEDS: QUEtiapine 25 MG Tablet PO SCH ×2 (12:52→21:06)
--- NOTE | 2018-01-19 15:33 | P.PNPSY ---
Subjective Remarks: Patient was seen and case discussed with nursing. Interview conducted in Korean. Patient is confused during the interview. Thought process is quite tangential. She is alert and oriented 2. She is behaving well on the unit. No aggressive behaviors or outbursts. Compliant with medications Mental Status Examination Appearance: Disheveled (Mildly) Consciousness: Alert, Highly distractible Orientation: Person, Place Motor Activity: Normal gait Speech: Pressured, Rapid Language: Perseveration (on going home) Fund of Knowledge: Poor Attention and Concentration: Inadequate Memory: Impaired Mood: Anxious, Irritable Affect: Anxious Thought Process & Associations: Loose associations, Tangential Thought Content: Other (Disorganized) Hallucination Type: Other (unable to assess) Delusion Type: Other (unable) Suicidal Ideation: No Suicidal Plan: No Suicidal Intention: No Homicidal Ideation: No Homicidal Plan: No Homicidal Intention: No Insight: Poor Judgment: Poor Assessment and Plan - Assessment (1) 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
[2018-01-20] MEDS: Insulin NovoLOG Aspart Correctional Sugar Inj SQ SCH ×4 (07:01→20:54)
[2018-01-20] MEDS: Carvedilol 6.25 MG Tablet PO SCH ×2 (08:41→20:58)
[2018-01-20] MEDS: Pantoprazole Sodium 20 MG DR Tablet PO SCH (08:42)
[2018-01-20] MEDS: QUEtiapine 25 MG Tablet PO SCH ×2 (12:39→20:53)
--- NOTE | 2018-01-20 13:49 | P.PNPSY ---
Subjective Remarks: Patient was seen and case discussed with nursing. Patient is pleasant and cooperative with exam. Interview conducted in Maori. Thought process is loose. She says she is in good spirits and denies suicidal or homicidal ideation intent. He alert and oriented 2. Behaving well on the unit and social with others Mental Status Examination Appearance: Disheveled (Mildly) Consciousness: Alert, Highly distractible Orientation: Person, Place Motor Activity: Normal gait Speech: Pressured, Rapid Language: Perseveration (on going home) Fund of Knowledge: Poor Attention and Concentration: Inadequate Memory: Impaired Mood: Anxious, Irritable Affect: Anxious Thought Process & Associations: Loose associations Thought Content: Other (Disorganized) Hallucination Type: Other (unable to assess) Delusion Type: Other (unable) Suicidal Ideation: No Suicidal Plan: No Suicidal Intention: No Homicidal Ideation: No Homicidal Plan: No Homicidal Intention: No Insight: Poor Judgment: Poor Assessment and Plan - Assessment (1) 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
[2018-01-21] MEDS: Carvedilol 6.25 MG Tablet PO SCH ×2 (09:23→21:07)
[2018-01-21] MEDS: Pantoprazole Sodium 20 MG DR Tablet PO SCH (09:26)
[2018-01-21] MEDS: Insulin NovoLOG Aspart Correctional Sugar Inj SQ SCH ×3 (12:20→21:00)
[2018-01-21] MEDS: QUEtiapine 25 MG Tablet PO SCH ×2 (14:53→21:07)
--- NOTE | 2018-01-21 15:29 | P.PNPSY ---
Subjective Remarks: Patient seen and examined with nurse in coverage for Dr. Reynoso. Chart reviewed. Case discussed with nursing staff who reports patient has been no behavioral problem so far today, although nursing staff does report that she was somewhat agitated over the weekend, for example twisting nurses arm. On my examination today, the patient is discharged focused. She is somewhat affectively labile. She is somewhat intrusive. She remains confused. No side effects from medications. No physical complaints. Per receptionist secretary, patient's family did call in today, and I have asked the receptionist secretary to forward these messages to Dr. Reynoso who is more familiar with the case. I did not speak with patient's family today. Vital Signs Temp Pulse Resp BP Pulse Ox 01/21/18 06:00 97.7 F 82 18 139/63 95 01/20/18 18:42 97.9 F 81 16 139/74 98 Laboratory Results - last 24 hr 01/20/18 01/20/18 01/21/18 18:01 20:09 06:34 POC Glucose 101 83 107 01/21/18 11:44 POC Glucose 201 H Labs reviewed. Review of Systems other (Limitation: Poor historian) Mental Status Examination Appearance: Other (Fair grooming) Consciousness: Alert, Vigilant Orientation: Person, Place Motor Activity: Normal gait Speech: Rapid Language: Perseveration (on going home) Fund of Knowledge: Poor Attention and Concentration: Inadequate Memory: Impaired Mood: Anxious Affect: Anxious Thought Process & Associations: Circumstantial (In setting of dementia) Thought Content: Preoccupations Hallucination Type: None Delusion Type: None Suicidal Ideation: No Homicidal Ideation: No Insight: Poor Judgment: Poor Assessment and Plan - Assessment (1) Alzheimer's disease with late onset Code(s): G30.1 - Alzheimer's disease with late onset; F02.80 - Dementia in other diseases classified elsewhere without behavioral disturbance Status: Acute - Plan Plan: Continue current psychotropic medications as ordered. Continue to monitor on the inpatient unit. Continue other medications and care as ordered. Justification for Continued Inpatient Stay: Risk for decompensation in less restrictive environment. Discharge Planning: Per Dr. Reynoso Request Healthcare Surrogate/Guardian Advocate?: Yes (1) Alzheimer's disease with late onset Qualifiers: Dementia behavioral disturbance: with behavioral disturbance Qualified Code(s ): G30.1 - Alzheimer's disease with late onset; F02.81 - Dementia in other diseases classified elsewhere with behavioral disturbance
[2018-01-22] MEDS: Insulin NovoLOG Aspart Correctional Sugar Inj SQ SCH ×3 (09:23→16:37)
[2018-01-22] MEDS: Carvedilol 6.25 MG Tablet PO SCH (09:25)
[2018-01-22] MEDS: Pantoprazole Sodium 20 MG DR Tablet PO SCH (09:26)
--- NOTE | 2018-01-22 11:19 | P.DSPSY ---
Psychiatry Discharge Summary Inpatient Psychiatric care?: Yes Advance Directives: Unknown Reason for Unknown:: Due to Patient Condition Mental Health Advance Directive: No Health Care Proxy: No - Admission Admission Date: January 14, 2018 19:18 - Admission Diagnosis (1) Dementia in other diseases classified elsewhere with behavioral disturbance Code(s): F02.81 - Dementia in other diseases classified elsewhere with behavioral disturbance (2) Alzheimer's disease with late onset Code(s): G30.1 - Alzheimer's disease with late onset; F02.80 - Dementia in other diseases classified elsewhere without behavioral disturbance Brief History: Patient is a 72-year-old female who comes here under Chacko act by the [facility] dated 01/14/2018 at 12:51 PM that document reviewed states this is Micheal has dementia becomes aggravated and is not taking her medication very disoriented and unaware of what is going on around her getting violent with he believes she needs to be evaluated without being evaluated she can be danger to herself or others around her patient seen screen in the ED urine toxicology positive for benzodiazepines. Patient did need an DTO in the emergency department. At the present time patient standing quietly in the hallway patient seen with nurse Elida. Patient is alert female speaking some broken Urdu she is intense with rapid pressured speech her volume was quite loud she is diffusely confused in all 4 spheres. Review of EMR shows no prior contact here. Reviewing of medical records showed the patient has an [place] but there is no contact data available at this time. We have had an EKG done and it is abnormal we will have the hospitalist consult will us with at this point feel patient does not have capacity to make decisions concerning her care thus I will ask for health care surrogate and guardian advocate. We will refrain from any scheduled medications at this time. The only thing of the med reconciliation was a small dose of Prozac and we will put that on hold at the present time. Continue to try to reach family get some more information about this patient help us with diagnosis treatment and recommendations Tobacco Use In Past 30 Days: No How Often Do You Have a Drink Containing Alcohol: Never Hospital Course: Patient's hospital course was uneventful. Cognitive deficits persisted though patient shows some mild improvement in her processing. With her compliance with the medication there is no significant sundowning behaviors. Though there is some mild irritability towards evening. She was redirectable. She has been compliant with medication. Denies suicidality homicidality voice or visions. At this time the family feel she has reached maximum benefit of this hospitalization is been communication with the patient's children. Thus patient will be discharged today to return home with her . Her has medical issues and does have home health care. We will also order home health care for this patient and also follow-up with mental health care - Discharge Discharge Date: 01/22/18 - Discharge Diagnosis (1) Dementia in other diseases classified elsewhere with behavioral disturbance Diagnosis: Principal Code(s): F02.81 - Dementia in other diseases classified elsewhere with behavioral disturbance Status: Acute (2) Alzheimer's disease with late onset Diagnosis: Principal Code(s): G30.1 - Alzheimer's disease with late onset; F02.80 - Dementia in other diseases classified elsewhere without behavioral disturbance Status: Acute Discharge Disposition: Home - Discharge Instructions Discharge Diet: Regular Diet Activities You Can Perform: Regular- No Restrictions - Discharge Time > 30 minutes Mental Status Examination Appearance: Other (Fair grooming) Consciousness: Alert, Vigilant Orientation: Person, Place Motor Activity: Normal gait Speech: Rapid Language: Perseveration (on going home) Fund of Knowledge: Poor Attention and Concentration: Inadequate Memory: Impaired Mood: Anxious Affect: Anxious Thought Process & Associations: Circumstantial (In setting of dementia) Thought Content: Preoccupations Hallucination Type: None Delusion Type: None Suicidal Ideation: No Suicidal Plan: No Suicidal Intention: No Homicidal Ideation: No Homicidal Plan: No Homicidal Intention: No Insight: Poor Judgment: Poor Discharge/Advance Care Plan - Results Vital Signs: Last Vital Signs Temp 98.4 F 01/22/18 05:57 Pulse 89 01/22/18 05:57 Resp 17 01/22/18 05:57 BP 152/74 H 01/22/18 05:57 Pulse Ox 99 01/22/18 05:57 Lab Results: Abnormal Lab Results 01/21/18 01/21/18 01/22/18 11:44 21:31 07:45 POC Glucose 201 H 104 129 H Laboratory Results Hemoglobin A1c 6.0 % (4.3-6.0) 01/15/18 08:55 Triglycerides 196 mg/dL (42-150) H 01/15/18 08:55 Cholesterol 224 mg/dL (120-200) H 01/15/18 08:55 LDL Cholesterol, Calc 133 mg/dL (0-99) H 01/15/18 08:55 HDL Cholesterol 52.2 mg/dL (40.0-60.0) 01/15/18 08:55 TSH 0.417 uIU/mL (0.358-3.740) 01/14/18 15:42 Summary of Procedures: None done Imaging: ITS Impressions Hand X-Ray 01/15/18 00:00 CONCLUSION: The osseous structures the hand are grossly intact. Wrist X-Ray 01/15/18 00:00 CONCLUSION: Negative examination Pending Results: None - Medications Number of antipsychotic medications at discharge: 1 - Discharge Care Plan Goals to Promote Your Health: * To prevent worsening of your condition and complications * To maintain your health at the optimal level Directions to Meet Your Goals: Take your medications as prescribed Follow your dietary instruction Follow activity as directed Keep your appointments as scheduled Take your immunizations and boosters as scheduled If your symptoms worsen call your PCP, if no PCP go to Urgent Care Center or Emergency Room For 18/12 questions related to your inpatient stay or results of tests pending at discharge, please contact Dr. Aleksandar Reynoso MD at Smoking is Dangerous to Your Health. Avoid second hand smoking (2) Alzheimer's disease with late onset Qualifiers: Dementia behavioral disturbance: with behavioral disturbance Qualified Code(s ): G30.1 - Alzheimer's disease with late onset; F02.81 - Dementia in other diseases classified elsewhere with behavioral disturbance (2) Alzheimer's disease with late onset Qualifiers: Dementia behavioral disturbance: with behavioral disturbance Qualified Code(s ): G30.1 - Alzheimer's disease with late onset; F02.81 - Dementia in other diseases classified elsewhere with behavioral disturbance
[2018-01-22] MEDS: QUEtiapine 25 MG Tablet PO SCH (12:05)
== END 2018-01-22 17:15 | disposition home or self-care (01) ==
LOC: NEPD 14:07 → NEDA 19:18 → H260 20:38 → H270 01-15 15:38 → H260 01-20 15:49
PROVIDERS: ADMIT Psychiatry & Neurology Psychiatry; ATTEND Psychiatry & Neurology Psychiatry

== ENCOUNTER 2018-03-16 20:46 | Inpatient (IN) ==
[2018-03-16] MEDS ORDERED: QUEtiapine 25 MG Tablet PO ONE (21:41)
[2018-03-16 22:20] LABS: Baso % (Auto) 0.7 % (0.0-2.0); Eos # (Auto) 0.2 th/mm3 (0.0-0.4); Hematocrit 39.4 % (35.0-46.0); Hemoglobin 12.8 gm/dL (11.6-15.3); Lymph # (Auto) 0.9 th/mm3 (1.0-4.8); Lymph % (Auto) 15.9 % (9.0-44.0); Mean Corpuscular HGB Conc 32.4 % (32.0-36.0); Mean Corpuscular Hemoglobin 30.3 pg (27.0-34.0); Mean Corpuscular Volume 93.4 fL (80.0-100.0); Mono # (Auto) 0.4 th/mm3 (0.0-0.9); Mono % (Auto) 7.7 % (0.0-8.0); Neut # (Auto) 4.2 th/mm3 (1.8-7.7); Neut % (Auto) 71.7 % (16.0-70.0); Platelet Count 271 th/mm3 (150-450); Red Blood Count 4.22 mil/mm3 (4.00-5.30); Red Cell Distribution Width 13.8 % (11.6-17.2); White Blood Count 5.9 th/mm3 (4.0-11.0)
--- NOTE | 2018-03-16 22:29 | ED ---
HPI General Chief Complaint: Psychiatric Symptoms Stated Complaint: Psych Screen Time Seen by Provider: 03/16/18 21:05 Source: patient and police Mode of arrival: ambulatory Limitations: no limitations History of Present Illness HPI Narrative: This is a 73-year-old female who presents emergency department under Chacko act. Patient suffers from Alzheimer's type dementia. She became agitated and physically aggressive at home. Police were notified. She was placed under a Chacko act and brought in for evaluation. The patient here speaks between Slovenian and Yakut at times. She states that she intends on contacting Alex or Alex regarding social issues at home with her . The patient has been seen in the ER for similar type presentations in the past. She does not appear to be suffering from any acute illness or injury. A complete meaningful history is unobtainable. Related Data Home Medications Medication Instructions Recorded Confirmed alprazolam [Xanax] 0.5 mg PO TID 01/15/18 03/16/18 hydrocodone-acetaminophen 10 - 325 mg PO Q6HR 01/15/18 03/16/18 carvedilol [Coreg] 6.25 mg PO BID 03/16/18 03/16/18 diclofenac sodium 75 mg PO BID 03/16/18 03/16/18 fluoxetine 40 mg PO DAILY 03/16/18 03/16/18 metformin 500 mg PO DAILY 03/16/18 03/16/18 metoprolol tartrate 50 mg PO BID 03/16/18 03/16/18 nystatin [Nystop] TOPICAL QID 03/16/18 omeprazole 20 mg PO DAILY 03/16/18 03/16/18 quetiapine [Seroquel] 200 PO HS 03/16/18 Previous Rx's Medication Instructions Recorded aspirin 81 mg PO DAILY #30 tab 01/22/18 atorvastatin 20 mg PO DAILY #30 tab 01/22/18 losartan 50 mg PO DAILY #30 tab 01/22/18 Allergies Allergy/AdvReac Type Severity Reaction Status Date / Time No Known Allergies Allergy Unverified 03/16/18 20:51 Review of Systems ROS Unobtainable ROS Unobtainable: unobtainable due to mental condition PMFSH Medical History Medical History Breast cancer (Acute) Surgical History Surgical History History of total left knee replacement (TKR) (Acute) Social History Social History Substance History: No History of Abuse Second Hand Smoke Exposure: No Smoking Status: Never smoker How Often Do You Have a Drink Containing Alcohol: Never Recent Travel in [facility] within the Last 8 Weeks: No Recent Out of Country Travel within the Last 8 Weeks: No Immunization History Tetanus Immunization: Unsure Exam Narrative Exam Narrative: GENERAL: Well-nourished, well-developed patient. SKIN: Warm and dry. HEAD: Normocephalic and atraumatic. EYES: No scleral icterus. No injection or drainage. ENT: No nasal drainage noted. Mucous membranes pink. Airway patent. NECK: Supple, trachea midline. Moves head freely without obvious discomfort. CARDIOVASCULAR: Regular rate and rhythm without murmurs, gallops, or rubs. RESPIRATORY: Breath sounds equal bilaterally. No accessory muscle use. GASTROINTESTINAL: Abdomen soft, non-tender, nondistended. EXTREMITIES: No cyanosis or edema. BACK: Nontender without obvious deformity. No CVA tenderness. NEURO: Patient is alert and oriented to person. The patient is pleasantly confused. no sensorimotor deficits. Nonfocal. Normal speech. Course Initial Documented Vital Signs Temperature 98.0 F 03/16/18 20:52 Pulse Rate 87 03/16/18 20:52 Respiratory Rate 18 03/16/18 20:52 Blood Pressure 138/80 03/16/18 20:52 Pulse Oximetry 99 03/16/18 20:52 Last Documented Vital Signs Temperature 98.0 F 03/16/18 22:07 Pulse Rate 86 03/16/18 22:07 Respiratory Rate 15 03/16/18 22:07 Blood Pressure 139/88 03/16/18 22:07 Pulse Oximetry 98 03/16/18 22:07 Medical Decision Making MDM Narrative Medical decision making narrative: We will obtain routine laboratory testing for medical clearance. Patient will be given Seroquel 50 mg p.o. for her agitation Medical Screen Exam Complete: Yes Emergency Medical Condition: Yes Differential Diagnosis Differential Diagnosis: MDM: High Differential diagnoses: Schizophrenia, schizoaffective disorder, bipolar, anxiety, depression, adjustment reaction, mood disorder NOS, ODD, depressive disorder NOS, dementia, dementia with agitation, psychosis NOS, substance induced mood disorder, infection,electrolyte abnormality, malingering. Mental health screening discussed with the patient. Psychiatric screen ordered. Lab Data Result diagrams: 03/16/18 21:00 03/16/18 21:00 Lab Results 03/16/18 03/16/18 03/16/18 Range/Units 21:00 21:00 23:15 WBC 5.9 (4.0-11.0) th/mm3 RBC 4.22 (4.00-5.30) mil/mm3 Hgb 12.8 (11.6-15.3) gm/dL Hct 39.4 (35.0-46.0) % MCV 93.4 (80.0-100.0) fL MCH 30.3 (27.0-34.0) pg MCHC 32.4 (32.0-36.0) % RDW 13.8 (11.6-17.2) % Plt Count 271 (150-450) th/mm3 MPV 8.0 (7.0-11.0) fL Neut % (Auto) 71.7 H (16.0-70.0) % Lymph % (Auto) 15.9 (9.0-44.0) % Harvey % (Auto) 7.7 (0.0-8.0) % Eos % (Auto) 4.0 (0.0-4.0) % Baso % (Auto) 0.7 (0.0-2.0) % Neut # (Auto) 4.2 (1.8-7.7) th/mm3 Lymph # (Auto) 0.9 L (1.0-4.8) th/mm3 Harvey # (Auto) 0.4 (0.0-0.9) th/mm3 Eos # (Auto) 0.2 (0.0-0.4) th/mm3 Baso # (Auto) 0.0 (0.0-0.2) th/mm3 WBC Differential . Differential Comment Auto diff final Sodium 143 (136-145) meq/L Potassium 4.6 (3.5-5.1) meq/L Chloride 109 H (98-107) meq/L Carbon Dioxide 28.8 (21.0-32.0) meq/L Anion Gap 5 (5-15) meq/L BUN 16 (7-18) mg/dL Creatinine 1.08 H (0.50-1.00) mg/dL Estimated GFR 50 L (>89) mL/min Random Glucose 93 (74-106) mg/dL Calcium 9.5 (8.5-10.1) mg/dL Magnesium 1.8 (1.5-2.5) mg/dL Total Bilirubin 0.3 (0.2-1.0) mg/dL AST 18 (15-37) U/L ALT 20 (10-53) U/L Alkaline Phosphatase 96 (45-117) U/L Total Protein 7.6 (6.4-8.2) g/dL Albumin 3.8 (3.4-5.0) g/dL TSH 0.488 (0.358-3.740) uIU/mL Urine Color (Yellw/Straw) Urine Clarity (Clear) Urine pH (5.0-8.5) Ur Specific Sanborn (1.002-1.035) Urine Protein (Neg-Trace) mg/dL Urine Glucose (UA) (Negative) mg/dL Urine Ketones (Negative) mg/dL Urine Occult Blood (Negative) Urine Nitrate (Negative) Urine Bilirubin (Negative) Urine Urobilinogen (Less than 2) mg/dL Ur Leukocyte Esterase (Negative) Urine RBC (0-3) /hpf Urine WBC (0-5) /hpf Urine WBC Clumps (None) Ur Squamous Epith Cells (0-5) /hpf Amorphous Sediment (None) /hpf Urine Bacteria (None) /hpf Urine Mucus (Occasional) /lpf Micro UA Comment Ur Microscopic Review Urine Culture Comments Urine Opiates Screen Neg (Neg) Ur Barbiturates Screen Neg (Neg) Ur Amphetamines Screen Neg (Neg) U Benzodiazepines Scrn Pos H (Neg) Urine Cocaine Screen Neg (Neg) U Cannabinoids Screen Neg (Neg) Serum Alcohol Less than 3 (0-5) mg/dL 03/16/18 Range/Units 23:15 WBC (4.0-11.0) th/mm3 RBC (4.00-5.30) mil/mm3 Hgb (11.6-15.3) gm/dL Hct (35.0-46.0) % MCV (80.0-100.0) fL MCH (27.0-34.0) pg MCHC (32.0-36.0) % RDW (11.6-17.2) % Plt Count (150-450) th/mm3 MPV (7.0-11.0) fL Neut % (Auto) (16.0-70.0) % Lymph % (Auto) (9.0-44.0) % Harvey % (Auto) (0.0-8.0) % Eos % (Auto) (0.0-4.0) % Baso % (Auto) (0.0-2.0) % Neut # (Auto) (1.8-7.7) th/mm3 Lymph # (Auto) (1.0-4.8) th/mm3 Harvey # (Auto) (0.0-0.9) th/mm3 Eos # (Auto) (0.0-0.4) th/mm3 Baso # (Auto) (0.0-0.2) th/mm3 WBC Differential Differential Comment Sodium (136-145) meq/L Potassium (3.5-5.1) meq/L Chloride (98-107) meq/L Carbon Dioxide (21.0-32.0) meq/L Anion Gap (5-15) meq/L BUN (7-18) mg/dL Creatinine (0.50-1.00) mg/dL Estimated GFR (>89) mL/min Random Glucose (74-106) mg/dL Calcium (8.5-10.1) mg/dL Magnesium (1.5-2.5) mg/dL Total Bilirubin (0.2-1.0) mg/dL AST (15-37) U/L ALT (10-53) U/L Alkaline Phosphatase (45-117) U/L Total Protein (6.4-8.2) g/dL Albumin (3.4-5.0) g/dL TSH (0.358-3.740) uIU/mL Urine Color Yellow (Yellw/Straw) Urine Clarity Cloudy H (Clear) Urine pH 5.0 (5.0-8.5) Ur Specific Sanborn 1.010 (1.002-1.035) Urine Protein Negative (Neg-Trace) mg/dL Urine Glucose (UA) Negative (Negative) mg/dL Urine Ketones Negative (Negative) mg/dL Urine Occult Blood Negative (Negative) Urine Nitrate Positive H (Negative) Urine Bilirubin Negative (Negative) Urine Urobilinogen Less than 2 (Less than 2) mg/dL Ur Leukocyte Esterase Large H (Negative) Urine RBC 4 H (0-3) /hpf Urine WBC (0-5) /hpf Urine WBC Clumps Many H (None) Ur Squamous Epith Cells 1 (0-5) /hpf Amorphous Sediment Rare H (None) /hpf Urine Bacteria Many H (None) /hpf Urine Mucus Few H (Occasional) /lpf Micro UA Comment Culture indicated Ur Microscopic Review Not Reportable Urine Culture Comments Culture indicated Urine Opiates Screen (Neg) Ur Barbiturates Screen (Neg) Ur Amphetamines Screen (Neg) U Benzodiazepines Scrn (Neg) Urine Cocaine Screen (Neg) U Cannabinoids Screen (Neg) Serum Alcohol (0-5) mg/dL Discharge Plan Discharge Disposition Patient Disposition: 30 Still Patient Discharge Condition Condition: Stable Physicians Team ED Provider: Neelima Morgan ED Midlevel Provider: Artis Patricio Primary Care Provider: UNKNOWN, Rxs /Orders / Referrals /Forms Prescriptions: No Action fluoxetine 40 mg Capsule 40 mg PO DAILY RF: 0 quetiapine [Seroquel] 200 mg Tablet 200 PO HS RF: 0 omeprazole 20 mg Capsule,Delayed Release(Dr/Ec) 20 mg PO DAILY RF: 0 diclofenac sodium 75 mg Tablet,Delayed Release (Dr/Ec) 75 mg PO BID RF: 0 metformin 500 mg tablet 500 mg PO DAILY RF: 0 carvedilol [Coreg] 6.25 mg tablet 6.25 mg PO BID RF: 0 metoprolol tartrate 50 mg Tablet 50 mg PO BID RF: 0 nystatin [Nystop] 100,000 unit/gram Powder Topical QID RF: 0 hydrocodone-acetaminophen 10-325 mg Tablet 10 - 325 mg PO Q6HR RF: 0 alprazolam [Xanax] 0.5 mg Tablet 0.5 mg PO TID RF: 0 atorvastatin 20 mg Tablet 20 mg PO DAILY Qty: 30 RF: 0 aspirin 81 mg Tablet,Delayed Release (Dr/Ec) 81 mg PO DAILY Qty: 30 RF: 0 losartan 50 mg Tablet 50 mg PO DAILY Qty: 30 RF: 0 Status ED Status: Medically Cleared
[2018-03-16 22:57] LABS: Albumin 3.8 g/dL (3.4-5.0); Anion Gap 5 meq/L (5-15); Aspartate Aminotransferase 18 U/L (15-37); Blood Urea Nitrogen 16 mg/dL (7-18); Calcium 9.5 mg/dL (8.5-10.1); Carbon Dioxide 28.8 meq/L (21.0-32.0); Chloride 109 meq/L (98-107); Glomerular Filtration Rate 50 mL/min (>89); Glucose,Random 93 mg/dL (74-106); Magnesium 1.8 mg/dL (1.5-2.5); Potassium 4.6 meq/L (3.5-5.1); Sodium 143 meq/L (136-145)
[2018-03-16 23:08] LABS: Alanine Aminotransferase 20 U/L (10-53); Alkaline Phosphatase 96 U/L (45-117); Thyroid Stimulating Hormone 0.488 uIU/mL (0.358-3.740); Total Protein 7.6 g/dL (6.4-8.2)
[2018-03-17 00:18] LABS: Amorphous Sediment,Urine Rare /hpf; Amphetamine Screen,Urine Neg (Neg); Bacteria,Urine Many /hpf; Barbiturate Screen,Urine Neg (Neg); Bilirubin,Urine Negative (Negative); Cannabinoid Screen,Urine Neg (Neg); Clarity,Urine Cloudy (Clear); Cocaine Screen,Urine Neg (Neg); Color,Urine Yellow (Yellw/Straw); Glucose,Urine (UA) Negative (Negative); Leukocyte Esterase,Urine Large (Negative); Mucus,Urine Few /lpf (Occasional); Nitrite,Urine Positive (Negative); Squamous Epithelial Cell,Urine 1 /hpf (0-5)
[2018-03-17 00:31] LABS: Opiate Screen,Urine Neg (Neg)
[2018-03-17] MEDS ORDERED: Bisacodyl 10 MG Supp RECTAL PRN (08:49)
[2018-03-17] MEDS ORDERED: Aluminum/Magnesium/Simethacone Susp 30 ML UDC PO PRN (08:49)
[2018-03-17] MEDS: Carvedilol 6.25 MG Tablet PO SCH ×2 (11:55→20:51)
[2018-03-17] MEDS: Senna/Docusate Sodium 8.6/50 MG Tablet PO SCH ×2 (12:08→20:51)
[2018-03-18 06:26] LABS: Calcium 8.9 mg/dL (8.5-10.1); Carbon Dioxide 30.6 meq/L (21.0-32.0); Chol/HDL Ratio 3.57 Ratio; HDL Cholesterol 48.9 mg/dL (40.0-60.0); Potassium 3.4 meq/L (3.5-5.1)
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
[2018-03-18] MEDS ORDERED: Dextrose 50% in Water 50 ML Vial IV.PUSH PRN (10:42)
[2018-03-18] MEDS: Carvedilol 6.25 MG Tablet PO SCH ×2 (10:44→20:20)
[2018-03-18] MEDS: Senna/Docusate Sodium 8.6/50 MG Tablet PO SCH ×2 (10:44→20:20)
[2018-03-18] MEDS: Insulin NovoLOG Aspart Correctional Sugar Inj SQ SCH ×3 (11:11→23:10)
[2018-03-18] MEDS ORDERED: Haloperidol Inj 5 MG/ML Ampul IM PRN (11:12)
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
[2018-03-18 16:26] LABS: Hemoglobin A1c 5.9 % (4.3-6.0)
[2018-03-18] MEDS: QUEtiapine 25 MG Tablet PO SCH (23:08)
[2018-03-19 07:14] LABS: Calcium 8.9 mg/dL (8.5-10.1); Carbon Dioxide 29.4 meq/L (21.0-32.0); Magnesium 1.6 mg/dL (1.5-2.5)
[2018-03-19] MEDS: Insulin NovoLOG Aspart Correctional Sugar Inj SQ SCH ×4 (08:05→21:48)
[2018-03-19] MEDS: Pantoprazole Sodium 20 MG DR Tablet PO SCH (08:40)
[2018-03-19] MEDS: Senna/Docusate Sodium 8.6/50 MG Tablet PO SCH ×2 (08:40→20:24)
[2018-03-19] MEDS: Carvedilol 6.25 MG Tablet PO SCH ×2 (08:41→20:24)
[2018-03-19] MEDS: QUEtiapine 25 MG Tablet PO SCH ×2 (08:41→20:25)
--- NOTE | 2018-03-19 11:41 | P.PN ---
Subjective Interval history: Patient seen in day room. She tells me that everything is fine -known to be a very poor historian. Nursing reports no adverse events or concerns. Physical Exam Vital signs: Vital Signs 03/18/18 18:16 03/19/18 05:48 Temperature 97.6 F 98 F Pulse Rate 68 69 Respiratory Rate 18 16 Blood Pressure 156/70 H 125/60 Pulse Oximetry 96 92 L Intake & Output 03/18/18 03/19/18 03/19/18 18:59 06:59 18:59 Intake Total 240 / 240 Balance 240 / 240 Intake: Oral 240 / 240 Narrative: GENERAL: Well-nourished, well-developed adult female in no obvious distress. SKIN: Warm and dry. HEAD: Atraumatic. Normocephalic. CARDIOVASCULAR: Regular rate and rhythm. RESPIRATORY: No accessory muscle use. Clear to auscultation. Breath sounds equal bilaterally. GASTROINTESTINAL: Abdomen soft, non-tender, non-distended. Positive bowel sounds. MUSCULOSKELETAL: Extremities without clubbing, cyanosis, or edema. No obvious deformities. NEUROLOGICAL: Awake and alert. No obvious cranial nerve deficits. Motor grossly within normal limits. Normal speech. PSYCHIATRIC: Very poor historian Results - Labs CBC & Chem 7: 03/16/18 21:00 03/19/18 05:53 Laboratory Results - last 24 hr 03/18/18 03/18/18 03/18/18 05:05 16:02 20:04 Sodium Potassium Chloride Carbon Dioxide Anion Gap BUN Creatinine Estimated GFR POC Glucose 78 77 Random Glucose Hemoglobin A1c 5.9 Calcium Magnesium 03/19/18 03/19/18 03/19/18 05:53 06:40 11:29 Sodium 144 Potassium 4.0 Chloride 107 Carbon Dioxide 29.4 Anion Gap 8 BUN 20 H Creatinine 0.94 Estimated GFR 59 L POC Glucose 95 100 Random Glucose 98 Hemoglobin A1c Calcium 8.9 Magnesium 1.6 Microbiology 03/16/18 23:15 Clean Catch Urine Urine Culture - Final Escherichia coli Assessment and Plan - Assessment (1) Hypokalemia Code(s): E87.6 - Hypokalemia Status: Acute (2) UTI (urinary tract infection) Code(s): N39.0 - Urinary tract infection, site not specified Status: Acute (3) Alzheimer's disease with late onset Code(s): G30.1 - Alzheimer's disease with late onset; F02.80 - Dementia in other diseases classified elsewhere without behavioral disturbance Status: Acute - Plan 73-year-old female with past medical history significant for breast cancer and Alzheimer's dementia who was brought to the emergency department under Chacko act after patient became aggressive at home. [facility] consulted to assist with medical management, decreased GFR and diabetes mellitus. Alzheimer's dementia -Patient placed under Chacko act due to aggressive behavior and brought to [place] for further psychiatric evaluation, treatment plan per psychiatry greatly appreciated Pre-diabetes mellitus Hemoglobin A1c on 03/17 was 6.0 -Patient can continue metformin as her GFR has improved and labs from this morning. -Avoid use if GFR is <30 -Diabetic diet, Accu-Cheks with insulin sliding scale -If blood sugar stable consider discontinuing Accu-Cheks Hypokalemia, resolved -Potassium this morning mildly elevated at 3.4, replace orally -Recheck 03/19 - now WNL HTN HLD -Continue Coreg, Cozaar, Lipitor, and ASA -Monitor BP/HR and adjust meds accordingly Urinary tract infection -UA positive for pansensitive E. coli -Patient asymptomatic, afebrile -Complete oral dose of Keflex 03/24 DVT prophylaxisambulation Discussed Condition With: Patient and nursing staff. (3) Alzheimer's disease with late onset Qualifiers: Dementia behavioral disturbance: with behavioral disturbance Qualified Code(s ): G30.1 - Alzheimer's disease with late onset; F02.81 - Dementia in other diseases classified elsewhere with behavioral disturbance
--- NOTE | 2018-03-19 14:32 | P.PNPSY ---
Subjective Chief Complaint: Chacko Act Remarks: Patient seen and examined with nurse. Chart reviewed. Case discussed with nursing staff who reports patient is focused on discharge. Patient is reportedly sleeping and eating fairly well. Case discussed with treatment team. Counselor has tried repeatedly to reach out to DCF worker and patient's children to discuss discharge planning. On my examination today, I find the patient in the day area on the phone with her . She asks that I speak with him, and patient's is today advocating for the patient's discharge home. However, counselor has been unable to clarify if this is a safe discharge plan, and I explained this to the . Patient presents as confused and somewhat interpersonally and tense. Her affect is somewhat labile and her speech is inappropriately loud at times. She has no side effects from medications. No physical complaints. Vital Signs Temp Pulse Resp BP Pulse Ox 03/19/18 05:48 98 F 69 16 125/60 92 L 03/18/18 18:16 97.6 F 68 18 156/70 H 96 Intake and Output 03/18/18 03/19/18 03/19/18 22:59 06:59 14:59 Intake Total 720 / 720 Balance 720 / 720 Intake: Oral 720 / 720 Laboratory Results - last 24 hr 03/18/18 03/18/18 03/18/18 05:05 16:02 20:04 Sodium Potassium Chloride Carbon Dioxide Anion Gap BUN Creatinine Estimated GFR POC Glucose 78 77 Random Glucose Hemoglobin A1c 5.9 Calcium Magnesium 03/19/18 03/19/18 03/19/18 05:53 06:40 11:29 Sodium 144 Potassium 4.0 Chloride 107 Carbon Dioxide 29.4 Anion Gap 8 BUN 20 H Creatinine 0.94 Estimated GFR 59 L POC Glucose 95 100 Random Glucose 98 Hemoglobin A1c Calcium 8.9 Magnesium 1.6 Labs reviewed. EKG read as sinus rhythm with left bundle branch block. QTC was within normal limits. Mental Status Examination Appearance: Disheveled Consciousness: Alert Orientation: Person, Place (Hospital) Motor Activity: Normal gait, Other (No motor abnormalities noted) Speech: Unremarkable Language: Other (Somewhat rambling) Fund of Knowledge: Inadequate Attention and Concentration: Inadequate Memory: Impaired (Registration 3 out of 3 and recall 1 out of 3 at 3 minutes. Able to name items.) Mood: Appropriate, Anxious Affect: Labile Thought Process & Associations: Tangential (In setting of dementia) Thought Content: Other (Some poverty of thought) Hallucination Type: None Delusion Type: None Suicidal Ideation: No Homicidal Ideation: No Insight: Poor Judgment: Poor Assessment and Plan - Assessment (1) Dementia with behavioral disturbance Code(s): F03.91 - Unspecified dementia with behavioral disturbance Status: Acute - Plan Plan: Titrate Seroquel to 37.5 mg twice daily for management of behavioral disturbance in the setting of dementia. No evidence of sedation from current dose. Hospitalist input noted and appreciated. Continue to monitor on the inpatient unit. Continue other medications and care as ordered. Justification for Continued Inpatient Stay: Medication changes. Risk for decompensation in less restrictive environment. Discharge Planning: Pending stabilization and further discharge planning. Case discussed with counselor. Request Healthcare Surrogate/Guardian Advocate?: Yes (1) Dementia with behavioral disturbance Qualifiers: Dementia type: Alzheimer's disease Alzheimer's disease onset: late-onset Qualified Code(s): G30.1 - Alzheimer's disease with late onset; F02.81 - Dementia in other diseases classified elsewhere with behavioral disturbance
--- NOTE | 2018-03-19 15:55 | P.TTN ---
- Patient Problems Problems: 1. Discharge planning 2. Medication compliance 3. Knowledge deficit 4. Lack of coping skills - Progress Toward Goals Provider Present: Dr. Ang Massey Provider Input: 03/19/2018; per doctor patient's meds are bieng adjusted Nurse(s) Present: RN Nurse Input: 03/19/2018; patient's medication are being adjusted to address her mood Psychiatric Counselors Present: Sandee Purdy LM Psychiatric Therapist Input: 03/19/2018: counselor will be contacting family and DCF to address dc planning and safety concerns Group Spec/RT/OT/ASHER Present: LB Pichardo Group Spec/RT/OT/ASHER Input: 03/19/2018; patient has not participate with groups or activities - Documentation Teaching Recipient: Patient
--- NOTE | 2018-03-19 16:16 | P.CONPSY ---
Provisional Diagnosis Admission Date: March 17, 2018 08:52 [employer] [facility] 1. Major neurocognitive disorder, likely of the Alzheimer type, with late onset , with behavioral disturbance Rule out component of overlying delirium, perhaps secondary to UTI [employer] [facility].: Deferred History of Present Illness Service: Psychiatry Consult date: 03/19/18 Requesting Physician: Jason Massey Reason for Consult: Second opinion Primary Care Provider: UNKNOWN Chief Complaint: "This is the second time I have been brought here" History of Present Illness: Patient is a 33-year-old woman domiciled with , with a past psychiatric history of dementia, previous psychiatric admissions was brought in under Chacko act due to recent aggressive behavior toward which patient was admitted to the inpatient psychiatry for further evaluation and management. Patient was found ambulating on the unit noted be social with others, noted to be calm and cooperative with interview today. Patient states that she has been for 40 years and that she is alone with her . She states that prior to her admission he had wanted her to take medications and was describing a disagreement between the 2 in which her had locked himself in her room and called the police. Patient denies having been physically aggressive to her she denies any thoughts of hurting herself or anyone else. Patient alerted to person, month and date but not to year and that she is in the hospital. Patient recently also diagnosed with recent UTI which may have contributed to her recent aggressive behavior will require further observation for safety and stabilization. Review of Systems All other systems reviewed negative except as stated in HPI PMFSH - History History Provided By: Patient, Medical Record - Medical History Medical History: Medical History (Last Updated 03/18/18 @ 13:30 by Roshan Dhillon) Alzheimer's dementia Breast cancer - Surgical History Surgical History: Surgical History (Last Reviewed 03/18/18 @ 13:30 by Roshan Dhillon) History of total left knee replacement (TKR) - Tobacco History Second Hand Smoke Exposure: No Tobacco Use In Past 30 Days: No Smoking Status: Never smoker Tobacco Type: Cigarettes - Alcohol History How Often Do You Have a Drink Containing Alcohol: Never - Substance Use History Substance History: No History of Abuse - Travel History Recent Travel in the [place] Within the Last 8 Weeks: No Recent Travel Out of the Country Within the Last 8 Weeks: No - Immunization History Tetanus Immunization: Unsure Medications and Allergies Active Medications: Active Medications Al Hydrox/Mg Hydrox/Simethicone (Mag-Al Plus Susp Liq) 30 ml PO Q6H PRN PRN Reason: DYSPEPSIA Al Hydroxide/Mg Hydroxide (Milk Of Magnesia Liq) 30 ml PO Q12H PRN PRN Reason: Mild Constipation Aspirin (Ecotrin) 81 mg PO DAILY [facility] Last Admin: 03/19/18 08:41 Dose: 81 mg Atorvastatin Calcium (Lipitor) 20 mg PO DAILY [facility] Last Admin: 03/19/18 08:41 Dose: 20 mg Carvedilol (Coreg) 6.25 mg PO BID [facility] Last Admin: 03/19/18 08:41 Dose: 6.25 mg Cephalexin Monohydrate (Keflex) 500 mg PO Q8HR [facility] Stop: 03/24/18 14:01 Last Admin: 03/19/18 13:34 Dose: 500 mg Dextrose (D50w Vial) 50 ml IV.PUSH UNSCH PRN PRN Reason: PER HYPOGLYCEMIA PROTOCOL Diclofenac Sodium (Voltaren Dr) 75 mg PO BID [facility] Last Admin: 03/19/18 08:41 Dose: 75 mg Glucagon (Glucagon Inj) 1 mg OTHER PRN PRN PRN Reason: for Hypoglycemia Protocol Haloperidol Lactate (Haldol Inj) 1 mg IM Q6H PRN PRN Reason: SEVERE AGITATION Insulin Aspart (Novolog Insulin Correctional Sugar Inj) 0 unit SQ [facility]; Protocol Last Admin: 03/19/18 11:31 Dose: Not Given Losartan Potassium (Cozaar) 50 mg PO DAILY [facility] Last Admin: 03/19/18 08:41 Dose: 50 mg Melatonin (Melatonin) 5 mg PO HS PRN PRN Reason: INSOMNIA Metformin HCl (Glucophage) 500 mg PO DAILY [facility] Last Admin: 03/19/18 08:41 Dose: 500 mg Miscellaneous (Pill Splitter) 1 each OTHER UNSCH [facility] Pantoprazole Sodium (Protonix) 20 mg PO DAILY [facility] Last Admin: 03/19/18 08:40 Dose: 20 mg Quetiapine Fumarate (Seroquel) 37.5 mg PO BID [facility] Senna/Docusate Sodium (Berta-Colace) 1 tab PO BID [facility] Last Admin: 03/19/18 08:40 Dose: 1 tab Allergies Allergy/AdvReac Type Severity Reaction Status Date / Time No Known Allergies Allergy Unverified 03/16/18 20:51 Home Medications Medication Instructions Recorded Confirmed Type alprazolam [Xanax] 0.5 mg PO TID 01/15/18 03/17/18 History hydrocodone-acetaminophen 10 - 325 mg PO Q6HR 01/15/18 03/17/18 History carvedilol [Coreg] 6.25 mg PO BID 03/16/18 03/16/18 History diclofenac sodium 75 mg PO BID 03/16/18 03/16/18 History fluoxetine 40 mg PO DAILY 03/16/18 03/16/18 History metformin 500 mg PO DAILY 03/16/18 03/17/18 History metoprolol tartrate 50 mg PO BID 03/16/18 03/16/18 History nystatin [Nystop] See Label Instructions .ROUTE 03/16/18 03/17/18 History .COMPLEX omeprazole 20 mg PO DAILY 03/16/18 03/16/18 History quetiapine [Seroquel] 200 mg PO HS 03/16/18 03/17/18 History Exam Vital signs: Vital Signs 03/18/18 18:16 03/19/18 05:48 Temperature 97.6 F 98 F Pulse Rate 68 69 Respiratory Rate 18 16 Blood Pressure 156/70 H 125/60 Pulse Oximetry 96 92 L Intake & Output 03/18/18 03/19/18 03/19/18 18:59 06:59 18:59 Intake Total 720 / 720 Balance 720 / 720 Intake: Oral 720 / 720 Narrative: Patient not noted to be in acute distress, no gross motor abnormalities, no signs of tremor or EPS, no psychomotor agitation or retardation. - Constitutional no acute distress, cooperative Mental Status Examination Appearance: Appropriate Consciousness: Alert Orientation: Person, Place (Hospital) Motor Activity: Normal gait, Other (No motor abnormalities noted) Speech: Unremarkable Language: Other (Somewhat rambling) Fund of Knowledge: Inadequate Attention and Concentration: Inadequate Memory: Impaired (Registration 3 out of 3 and recall 1 out of 3 at 3 minutes. Able to name items.) Mood: Appropriate, Anxious Affect: Labile Thought Process & Associations: Tangential (In setting of dementia) Thought Content: Other (Some poverty of thought) Hallucination Type: None Delusion Type: None Suicidal Ideation: No Suicidal Plan: No Suicidal Intention: No Homicidal Ideation: No Homicidal Plan: No Homicidal Intention: No Insight: Poor Judgment: Poor Assessment and Plan - Assessment (1) Dementia with behavioral disturbance Code(s): F03.91 - Unspecified dementia with behavioral disturbance Status: Acute - Plan Plan: Patient continues with baseline confusion secondary to neurocognitive deficits from dementia. Patient with recent aggressive behavior toward which patient would reported physical aggravation toward him and would require inpatient observation and stabilization due to concern of harm to others. I have seen and examined this patient, reviewed the documentation, and I agree and concur with Dr. Massey assessment and plan. I have completed second opinion for the petition for involuntary hospitalization. Consult appreciated. Justification for Continued Inpatient Stay: At risk of further decompensation at lower level care. Request Healthcare Surrogate/Guardian Advocate?: Yes (1) Dementia with behavioral disturbance Qualifiers: Dementia type: Alzheimer's disease Alzheimer's disease onset: late-onset Qualified Code(s): G30.1 - Alzheimer's disease with late onset; F02.81 - Dementia in other diseases classified elsewhere with behavioral disturbance
[2018-03-20] MEDS: Insulin NovoLOG Aspart Correctional Sugar Inj SQ SCH ×2 (07:47→12:53)
[2018-03-20] MEDS: QUEtiapine 25 MG Tablet PO SCH ×2 (08:51→20:25)
[2018-03-20] MEDS: Pantoprazole Sodium 20 MG DR Tablet PO SCH (08:52)
[2018-03-20] MEDS: Senna/Docusate Sodium 8.6/50 MG Tablet PO SCH ×2 (08:53→20:26)
[2018-03-20] MEDS: Carvedilol 6.25 MG Tablet PO SCH ×2 (08:53→20:27)
--- NOTE | 2018-03-20 12:55 | P.PN ---
Subjective Interval history: Patient is seen in break room. She tells me that she is "great". Nursing reports no new concerns or complaints. Physical Exam Vital signs: Vital Signs 03/19/18 17:23 03/20/18 05:49 Temperature 98.6 F 98.9 F Pulse Rate 84 74 Respiratory Rate 18 16 Blood Pressure 137/63 141/65 H Pulse Oximetry 94 L 96 Intake & Output 03/19/18 03/20/18 03/20/18 18:59 06:59 18:59 Intake Total 960 / 960 Balance 960 / 960 Intake: Oral 960 / 960 Narrative: GENERAL: Well-nourished, well-developed adult female in no obvious distress. SKIN: Warm and dry. HEAD: Atraumatic. Normocephalic. CARDIOVASCULAR: Regular rate and rhythm. RESPIRATORY: No accessory muscle use. Clear to auscultation. Breath sounds equal bilaterally. GASTROINTESTINAL: Abdomen soft, non-tender, non-distended. Positive bowel sounds. MUSCULOSKELETAL: Extremities without clubbing, cyanosis, or edema. No obvious deformities. NEUROLOGICAL: Awake and alert. No obvious cranial nerve deficits. Motor grossly within normal limits. Normal speech. PSYCHIATRIC: Very poor historian Results - Labs CBC & Chem 7: 03/16/18 21:00 03/19/18 05:53 Laboratory Results - last 24 hr 03/19/18 03/19/18 03/20/18 16:35 19:55 07:35 POC Glucose 115 H 88 113 H 03/20/18 12:31 POC Glucose 104 Assessment and Plan - Assessment (1) Hypokalemia Code(s): E87.6 - Hypokalemia Status: Acute (2) UTI (urinary tract infection) Code(s): N39.0 - Urinary tract infection, site not specified Status: Acute (3) Alzheimer's disease with late onset Code(s): G30.1 - Alzheimer's disease with late onset; F02.80 - Dementia in other diseases classified elsewhere without behavioral disturbance Status: Acute - Plan 73-year-old female with past medical history significant for breast cancer and Alzheimer's dementia who was brought to the emergency department under Chacko act after patient became aggressive at home. [facility] consulted to assist with medical management, decreased GFR and diabetes mellitus. Alzheimer's dementia -Patient placed under Chacko act due to aggressive behavior and brought to [place] for further psychiatric evaluation, treatment plan per psychiatry greatly appreciated Pre-diabetes mellitus Hemoglobin A1c on 03/17 was 6.0 -Patient can continue metformin as her GFR has improved and labs from this morning. -Avoid use if GFR is <30 -Diabetic diet, Accu-Cheks with insulin sliding scale -Blood sugar has been stable and patient has not needed insulin. Will DC insulin and Accu-Cheks Hypokalemia, resolved -Potassium this morning mildly elevated at 3.4, replace orally -Recheck 03/19 - now WNL HTN HLD -Continue Coreg, Cozaar, Lipitor, and ASA -Monitor BP/HR and adjust meds accordingly Urinary tract infection -UA positive for pansensitive E. coli -Patient asymptomatic, afebrile -Complete oral dose of Keflex 03/24 DVT prophylaxisambulation Discussed Condition With: Patient and nursing staff. Patient appears to be medically stable. Hospitalist service will sign off at this time. Please reconsult if needed. (3) Alzheimer's disease with late onset Qualifiers: Dementia behavioral disturbance: with behavioral disturbance Qualified Code(s ): G30.1 - Alzheimer's disease with late onset; F02.81 - Dementia in other diseases classified elsewhere with behavioral disturbance
--- NOTE | 2018-03-20 15:58 | P.PNPSY ---
Subjective Chief Complaint: Chacko Act Remarks: Patient seen and examined with nurse. Chart reviewed. Case discussed with nursing staff who reports patient is essentially unchanged today. She was up and down 2-3 times last night. No significant behavioral disturbance reported. On my examination today, the patient remains confused but calm and cooperative. Counselor has been in contact with DCF worker who reportedly has expressed concerns about safety in the home environment with patient. Counselor has also spoken with 1 of patient's children, her power of senior trial attorney per her report, who is reportedly supportive of placement, although there may be some financial difficulties with this that we will need to be ironed out. The patient denies side effects from medications. No physical complaints. Vital Signs Temp Pulse Resp BP Pulse Ox 03/20/18 05:49 98.9 F 74 16 141/65 H 96 03/19/18 17:23 98.6 F 84 18 137/63 94 L Intake and Output 03/20/18 03/20/18 03/20/18 06:59 14:59 22:59 Other: Date of Last Bowel Movement 03/19/18 Laboratory Results - last 24 hr 03/19/18 03/19/18 03/20/18 16:35 19:55 07:35 POC Glucose 115 H 88 113 H 03/20/18 12:31 POC Glucose 104 Labs reviewed. Review of Systems All other systems reviewed negative except as stated in HPI (Limitation: Poor historian) Mental Status Examination Appearance: Appropriate Consciousness: Alert Orientation: Person, Place (Hospital) Motor Activity: Normal gait, Other (No motoric abnormalities noted) Speech: Unremarkable Language: Other (Remains a little rambling) Fund of Knowledge: Inadequate Attention and Concentration: Inadequate Memory: Impaired Mood: Appropriate Affect: Blunt Thought Process & Associations: Tangential (In setting of dementia) Thought Content: Other (Some poverty of thought) Hallucination Type: None Delusion Type: None Suicidal Ideation: No Homicidal Ideation: No Insight: Poor Judgment: Poor Assessment and Plan - Assessment (1) Dementia with behavioral disturbance Code(s): F03.91 - Unspecified dementia with behavioral disturbance Status: Acute - Plan Plan: Continue Seroquel as ordered. Hospitalist input noted and appreciated. Continue to monitor on the inpatient unit. Continue other medications and care as ordered. Justification for Continued Inpatient Stay: High risk for decompensation in less restrictive environment. Discharge Planning: Possible placement. Case discussed with counselor. [place] act [address] tomorrow. Request Healthcare Surrogate/Guardian Advocate?: Yes (1) Dementia with behavioral disturbance Qualifiers: Dementia type: Alzheimer's disease Alzheimer's disease onset: late-onset Qualified Code(s): G30.1 - Alzheimer's disease with late onset; F02.81 - Dementia in other diseases classified elsewhere with behavioral disturbance
--- NOTE | 2018-03-21 02:00 | ECG ---
Date Performed: 03/18/2018 Time Performed: 14:21:29 PTAGE: 73 years EKG: Sinus rhythm LEFT BUNDLE BRANCH BLOCK ABNORMAL ECG PREVIOUS TRACING : 01/16/2018 09.22 Since the previous tracing, no significant change noted DOCTOR: Dillon Mejia Interpretating Date/Time 03/21/2018 01:59:40
[2018-03-21] MEDS: Carvedilol 6.25 MG Tablet PO SCH ×2 (09:31→20:24)
[2018-03-21] MEDS: Senna/Docusate Sodium 8.6/50 MG Tablet PO SCH ×2 (09:31→20:22)
[2018-03-21] MEDS: Pantoprazole Sodium 20 MG DR Tablet PO SCH (09:31)
[2018-03-21] MEDS: QUEtiapine 25 MG Tablet PO SCH ×2 (09:31→20:24)
--- NOTE | 2018-03-21 09:57 | P.PNPSY ---
Subjective Chief Complaint: [place] Remarks: Patient seen and case discussed with nursing staff. Chart reviewed. Case discussed with nursing staff. For me today, patient is essentially unchanged. She is very mildly labile but presents no real behavioral problem. She remains forgetful. She is perseverative on discharge. No evident side effects from medications. No physical complaints. Patient's daughter Lyubov Burton was appointed as patient's HCS by the [place] court of appeals judge today. I reached out to Ms. Burton at [phone] to discuss the plan of care and also to obtain new consent for patient's psychotropics. We review the R/B/A for medications including metabolic and motor side effects of antipsychotic therapy, and I have highlighted to her the FDA blackbox warning regarding increased risk of in the demented elderly with antipsychotic medication therapy. She provides consent for psychotropic medications. Vital Signs Temp Pulse Resp BP Pulse Ox 03/21/18 12:15 98.9 F 83 16 151/69 H 93 L 03/21/18 05:52 98 F 77 16 153/68 H 95 Intake and Output 03/20/18 03/21/18 03/21/18 22:59 06:59 14:59 Intake Total 360 / 360 Balance 360 / 360 Intake: Oral 360 / 360 Other: Date of Last Bowel Movement 03/19/18 Weight 98 kg 71.4 kg Patient Weight 03/22/18 06:59 Weight 71.4 kg Labs reviewed. Review of Systems other (Limited ROS today) Mental Status Examination Appearance: Appropriate Consciousness: Alert Orientation: Person, Place (Hospital) Motor Activity: Normal gait, Other (No abnormal motor movements noted) Speech: Unremarkable Language: Other (Remains a little rambling) Fund of Knowledge: Inadequate Attention and Concentration: Inadequate Memory: Impaired Mood: Appropriate Affect: Labile (Very mild) Thought Process & Associations: Tangential (In setting of dementia) Thought Content: Other (Some poverty of thought) Hallucination Type: None Delusion Type: None Suicidal Ideation: No Homicidal Ideation: No Insight: Poor Judgment: Poor Assessment and Plan - Assessment (1) Dementia with behavioral disturbance Code(s): F03.91 - Unspecified dementia with behavioral disturbance Status: Acute - Plan Plan: Continue Seroquel as ordered. Patient also has Haldol and melatonin available as needed but has received none of either. Continue to monitor on the inpatient unit. Continue other care as ordered. Patient's case was presented to the [place] court and was placed in continuance for [address] of appeals judge with patient's daughter to serve as health care surrogate. Justification for Continued Inpatient Stay: Risk for decompensation in less restrictive environment. Discharge Planning: Anticipate placement. Case discussed with counselor. Request Healthcare Surrogate/Guardian Advocate?: Yes (1) Dementia with behavioral disturbance Qualifiers: Dementia type: Alzheimer's disease Alzheimer's disease onset: late-onset Qualified Code(s): G30.1 - Alzheimer's disease with late onset; F02.81 - Dementia in other diseases classified elsewhere with behavioral disturbance
[2018-03-21] MEDS: Melatonin 5 MG Tablet PO PRN (20:23)
[2018-03-22] MEDS: Carvedilol 6.25 MG Tablet PO SCH ×2 (09:06→20:38)
[2018-03-22] MEDS: Pantoprazole Sodium 20 MG DR Tablet PO SCH (09:06)
[2018-03-22] MEDS: QUEtiapine 25 MG Tablet PO SCH ×2 (09:06→20:38)
[2018-03-22] MEDS: Senna/Docusate Sodium 8.6/50 MG Tablet PO SCH ×2 (09:06→20:38)
--- NOTE | 2018-03-22 13:02 | P.PNPSY ---
Subjective Chief Complaint: [place] Act Remarks: Patient seen and examined. Chart reviewed. Case discussed with staff. Case discussed in treatment team. I find the patient sitting in the day area. Initially when I engage with her, the patient crosses her arms and sits back defiantly, apparently displeased to have been retained on the unit [place] yesterday. She does engage more later in the interview and becomes less irritable. She remains quite discharged focused. She remains somewhat forgetful as at recent baseline. No side effects from medications. No physical complaints. Vital Signs Temp Pulse Resp BP Pulse Ox 03/22/18 06:00 98.5 F 94 H 18 142/93 H 95 03/21/18 17:21 97.5 F L 86 18 138/65 94 L Intake and Output 03/22/18 03/22/18 03/22/18 06:59 14:59 22:59 Intake Total 0 / 0 Balance 0 / 0 Intake: Oral 0 / 0 Other: # Voids 0 Labs reviewed. Review of Systems All other systems reviewed negative except as stated in HPI (Limitation: Poor historian) Mental Status Examination Appearance: Appropriate Consciousness: Alert Orientation: Person, Place (Hospital) Motor Activity: Normal gait, Other (No motor abnormalities noted) Speech: Unremarkable Language: Other (Remains a little rambling) Fund of Knowledge: Inadequate Attention and Concentration: Inadequate Memory: Impaired Mood: Irritable (Mild) Affect: Irritable Thought Process & Associations: Tangential (In setting of dementia) Thought Content: Other (Ongoing poverty of thought) Hallucination Type: None Delusion Type: None Suicidal Ideation: No Homicidal Ideation: No Insight: Poor Judgment: Poor Assessment and Plan - Assessment (1) Dementia with behavioral disturbance Code(s): F03.91 - Unspecified dementia with behavioral disturbance Status: Acute - Plan Plan: Continue Seroquel as ordered. Continue to monitor on the inpatient unit. Continue other medications and care as ordered. Justification for Continued Inpatient Stay: Risk for decompensation in less restrictive environment. Discharge Planning: Counselor is working with family on placement. Request Healthcare Surrogate/Guardian Advocate?: Yes (1) Dementia with behavioral disturbance Qualifiers: Dementia type: Alzheimer's disease Alzheimer's disease onset: late-onset Qualified Code(s): G30.1 - Alzheimer's disease with late onset; F02.81 - Dementia in other diseases classified elsewhere with behavioral disturbance
--- NOTE | 2018-03-22 13:29 | P.TTN ---
- Patient Problems Problems: 1. Discharge planning 2. Medication compliance 3. Knowledge deficit 4. Lack of coping skills - Progress Toward Goals Provider Present: Dr. Ang Massey Provider Input: 03/22/2018: no med adjustment at this time. 03/19/2018; per doctor patient's meds are bieng adjusted Nurse(s) Present: RN Nurse Input: 03/22/2018; no behavior, patient is eating meals, and taking her medication. 03/19/2018; patient's medication are being adjusted to address her mood Psychiatric Counselors Present: PANCHITO Victor Psychiatric Therapist Input: 03/22/2018; counselor will assist family, and DCF with placement. 03/19/2018: counselor will be contacting family and DCF to address dc planning and safety concerns Group Spec/RT/OT/ASHER Present: LB Pichardo Group Spec/RT/OT/ASHER Input: 03/22/2018; patient participate with limited activities. 03/19/2018; patient has not participate with groups or activities - Documentation Teaching Recipient: Patient
[2018-03-23] MEDS: Carvedilol 6.25 MG Tablet PO SCH ×2 (08:36→20:28)
[2018-03-23] MEDS: QUEtiapine 25 MG Tablet PO SCH ×2 (08:36→20:29)
[2018-03-23] MEDS: Pantoprazole Sodium 20 MG DR Tablet PO SCH (08:36)
[2018-03-23] MEDS: Senna/Docusate Sodium 8.6/50 MG Tablet PO SCH ×2 (09:02→20:28)
--- NOTE | 2018-03-23 13:06 | P.PNPSY ---
Subjective Chief Complaint: [place] Act Remarks: Patient seen and examined with nurse. Chart reviewed. Case discussed with nursing staff who reports the patient has presented no real behavioral problem on the inpatient unit. On my examination today, the patient showers her nurse with praise. She complains of poor sleep citing a disruptive roommate. Roommate has in fact been disrupting the sleep of everyone on the unit I am told , and I have asked the nurse to try to assign the patient a different roommate. Patient is calm and cooperative at the time of my evaluation. No side effects from medications. No physical complaints. Vital Signs Temp Pulse Resp BP Pulse Ox 03/23/18 06:00 98.5 F 80 17 133/65 92 L 03/22/18 18:33 98.5 F 88 16 148/65 H 94 L Intake and Output 03/22/18 03/23/18 03/23/18 22:59 06:59 14:59 Intake Total 840 / 840 120 / 120 Balance 840 / 840 120 / 120 Intake: Oral 840 / 840 120 / 120 Other: # Voids 3 Labs reviewed. Review of Systems All other systems reviewed negative except as stated in HPI (Limitation: Poor historian) Mental Status Examination Appearance: Appropriate Consciousness: Alert Orientation: Person, Place (At least) Motor Activity: Normal gait, Other (No abnormal motor movements noted) Speech: Unremarkable Language: Other (Remains a little rambling) Fund of Knowledge: Inadequate Attention and Concentration: Inadequate Memory: Impaired Mood: Appropriate Affect: Appropriate Thought Process & Associations: Circumstantial (In setting of dementia) Thought Content: Other (Ongoing poverty of thought) Hallucination Type: None Delusion Type: None Suicidal Ideation: No Homicidal Ideation: No Insight: Poor Judgment: Poor Assessment and Plan - Assessment (1) Dementia with behavioral disturbance Code(s): F03.91 - Unspecified dementia with behavioral disturbance Status: Acute - Plan Plan: Continue low-dose Seroquel as ordered. Continue to monitor on the inpatient unit. Continue other medications and care as ordered. Justification for Continued Inpatient Stay: Risk for decompensation in less restrictive environment. Discharge Planning: Counselor is working on placement for this patient Request Healthcare Surrogate/Guardian Advocate?: Yes (1) Dementia with behavioral disturbance Qualifiers: Dementia type: Alzheimer's disease Alzheimer's disease onset: late-onset Qualified Code(s): G30.1 - Alzheimer's disease with late onset; F02.81 - Dementia in other diseases classified elsewhere with behavioral disturbance
[2018-03-24] MEDS: Senna/Docusate Sodium 8.6/50 MG Tablet PO SCH ×2 (08:17→20:28)
[2018-03-24] MEDS: Pantoprazole Sodium 20 MG DR Tablet PO SCH (08:17)
[2018-03-24] MEDS: Carvedilol 6.25 MG Tablet PO SCH ×2 (08:17→20:28)
[2018-03-24] MEDS: QUEtiapine 25 MG Tablet PO SCH ×2 (08:18→20:28)
--- NOTE | 2018-03-24 08:43 | P.PNPSY ---
Subjective Chief Complaint: [place] Act Remarks: Chart reviewed and discussed with nursing staff. Amita, RN and I met with patient in her room. She is pleasant but then goes into periods of tears and sadness. She states that her is elderly and has an infection in his feet. He has a home health nurse, but she feels that she should be there to care for him. She is sleeping intermittently due to the noise from other patients. Appetite is good. Nursing reports that she can be intrusive, but no behavioral concerns. Review of Systems All other systems reviewed negative except as stated in HPI Mental Status Examination Appearance: Appropriate Consciousness: Alert Orientation: Person, Place (At least) Motor Activity: Normal gait, Other (No abnormal motor movements noted) Speech: Unremarkable Language: Other (Remains a little rambling) Fund of Knowledge: Inadequate Attention and Concentration: Inadequate Memory: Impaired Mood: Appropriate Affect: Appropriate Thought Process & Associations: Circumstantial (In setting of dementia) Thought Content: Other (Ongoing poverty of thought) Hallucination Type: None Delusion Type: None Suicidal Ideation: No Suicidal Plan: No Suicidal Intention: No Homicidal Ideation: No Homicidal Plan: No Homicidal Intention: No Insight: Poor Judgment: Poor Assessment and Plan - Assessment (1) Dementia with behavioral disturbance Code(s): F03.91 - Unspecified dementia with behavioral disturbance Status: Acute - Plan Plan: Continue current treatment plan. Justification for Continued Inpatient Stay: Moving patient to a less restrictive environment may result in her decompensation. Request Healthcare Surrogate/Guardian Advocate?: Yes (1) Dementia with behavioral disturbance Qualifiers: Dementia type: Alzheimer's disease Alzheimer's disease onset: late-onset Qualified Code(s): G30.1 - Alzheimer's disease with late onset; F02.81 - Dementia in other diseases classified elsewhere with behavioral disturbance
[2018-03-25] MEDS: Carvedilol 6.25 MG Tablet PO SCH ×2 (09:18→21:22)
[2018-03-25] MEDS: Senna/Docusate Sodium 8.6/50 MG Tablet PO SCH ×2 (09:18→21:31)
[2018-03-25] MEDS: Pantoprazole Sodium 20 MG DR Tablet PO SCH (09:18)
[2018-03-25] MEDS: QUEtiapine 25 MG Tablet PO SCH ×2 (09:19→21:24)
--- NOTE | 2018-03-25 12:34 | P.PNPSY ---
Subjective Chief Complaint: [place] Act Remarks: Patient seen and examined. Chart reviewed. Case discussed with nursing staff. Patient noted to be somewhat intrusive but otherwise no major behavioral problem. Case discussed with counselor client service supervisor who reports that her team is trying to work with daughter towards plan for placement for patient. On my exam , patient complains of some dizziness. She remains discharge focused. No mood or psychotic symptoms reported. Besides possibly the dizziness, no other reported medication side effects. No other physical complaints. Vital Signs Temp Pulse Resp BP Pulse Ox 03/25/18 05:37 98 F 82 17 149/62 H 93 L 03/24/18 17:49 97.7 F 79 18 134/63 94 L Intake and Output 03/24/18 03/25/18 03/25/18 22:59 06:59 14:59 Intake Total 1320 / 1320 Balance 1320 / 1320 Intake: Oral 1320 / 1320 Other: # Voids 4 Labs reviewed. No new labs. Review of Systems All other systems reviewed negative except as stated in HPI (Limitation: Poor historian) Mental Status Examination Appearance: Appropriate Consciousness: Alert Orientation: Person, Place (At least) Motor Activity: Normal gait, Other (No motoric abnormalities noted) Speech: Unremarkable Language: Other (Somewhat rambling) Fund of Knowledge: Inadequate Attention and Concentration: Inadequate Memory: Impaired Mood: Appropriate Affect: Appropriate Thought Process & Associations: Circumstantial (In setting of dementia) Thought Content: Other (Poverty of thought) Hallucination Type: None Delusion Type: None Suicidal Ideation: No Homicidal Ideation: No Insight: Poor Judgment: Poor Assessment and Plan - Assessment (1) Dementia with behavioral disturbance Code(s): F03.91 - Unspecified dementia with behavioral disturbance Status: Acute - Plan Plan: In light of complaints of dizziness, I will obtain orthostatic vital signs and request hospitalist consultation. Continue Seroquel as ordered for now. Dizziness might reflect medication side effect, although this seems less likely given delay in onset of this complaint relative to initiation of the Seroquel. Continue to monitor on inpatient unit. Continue other medications and care as ordered. Justification for Continued Inpatient Stay: Risk for decompensation in less restrictive environment. Discharge Planning: Counselors working with family on placement. Request Healthcare Surrogate/Guardian Advocate?: Yes (1) Dementia with behavioral disturbance Qualifiers: Dementia type: Alzheimer's disease Alzheimer's disease onset: late-onset Qualified Code(s): G30.1 - Alzheimer's disease with late onset; F02.81 - Dementia in other diseases classified elsewhere with behavioral disturbance
--- NOTE | 2018-03-25 17:20 | P.PN ---
Subjective Interval history: Patient is seen in lui. She is a poor historian making evaluation difficult but she does communicate that she has experienced some dizziness and a feeling of the hallway moving and spinning around her when she tries to walk. She also indicates some heart palpitations but no chest pain. No shortness of breath. No fever or chills. No nausea vomiting or diarrhea. Physical Exam Vital signs: Vital Signs 03/24/18 17:49 03/25/18 05:37 Temperature 97.7 F 98 F Pulse Rate 79 82 Respiratory Rate 18 17 Blood Pressure 134/63 149/62 H Pulse Oximetry 94 L 93 L Intake & Output 03/24/18 03/25/18 03/25/18 18:59 06:59 18:59 Intake Total 1320 / 1320 Balance 1320 / 1320 Intake: Oral 1320 / 1320 Other: # Voids 4 Narrative: GENERAL: Well-nourished, well-developed adult female in no obvious distress. SKIN: Warm and dry. HEAD: Atraumatic. Normocephalic. CARDIOVASCULAR: Regular rate and rhythm. RESPIRATORY: No accessory muscle use. Clear to auscultation. Breath sounds equal bilaterally. GASTROINTESTINAL: Abdomen soft, non-tender, non-distended. Positive bowel sounds. MUSCULOSKELETAL: Extremities without clubbing, cyanosis, or edema. No obvious deformities. NEUROLOGICAL: Awake and alert. No obvious cranial nerve deficits. Motor grossly within normal limits. Normal speech. PSYCHIATRIC: Very poor historian Results - Labs CBC & Chem 7: 03/16/18 21:00 03/19/18 05:53 Assessment and Plan - Assessment (1) Hypokalemia Code(s): E87.6 - Hypokalemia Status: Acute (2) UTI (urinary tract infection) Code(s): N39.0 - Urinary tract infection, site not specified Status: Acute (3) Alzheimer's disease with late onset Code(s): G30.1 - Alzheimer's disease with late onset; F02.80 - Dementia in other diseases classified elsewhere without behavioral disturbance Status: Acute (4) Vertigo Code(s): R42 - Dizziness and giddiness Status: Acute (5) Unstable gait Code(s): R26.81 - Unsteadiness on feet Status: Acute (6) Heart palpitations Code(s): R00.2 - Palpitations Status: Acute - Plan 73-year-old female with past medical history significant for breast cancer and Alzheimer's dementia who was brought to the emergency department under [place] act after patient became aggressive at home. [facility] re-consulted for complaint of dizziness. Vertigo with unstable gait and palpitations -Likely benign proximal vertigo however will order EKG and labs for additional evaluation. -Orthostatics ordered by primary -PT consult placed Alzheimer's dementia -Patient placed under [place] act due to aggressive behavior and brought to [place] for further psychiatric evaluation, treatment plan per psychiatry greatly appreciated Pre-diabetes mellitus Hemoglobin A1c on 03/17 was 6.0 -Patient can continue metformin as her GFR has improved and labs from this morning. -Avoid use if GFR is <30 -Diabetic diet, Accu-Cheks with insulin sliding scale -Blood sugar has been stable and patient has not needed insulin. Will DC insulin and Accu-Cheks HTN HLD -Continue Coreg, Cozaar, Lipitor, and ASA -Monitor BP/HR and adjust meds accordingly Urinary tract infection; resolved -UA positive for pansensitive E. coli -Patient asymptomatic, afebrile -Complete oral dose of Keflex 03/24 DVT prophylaxisambulation (3) Alzheimer's disease with late onset Qualifiers: Dementia behavioral disturbance: with behavioral disturbance Qualified Code(s ): G30.1 - Alzheimer's disease with late onset; F02.81 - Dementia in other diseases classified elsewhere with behavioral disturbance
[2018-03-25 20:40] LABS: Baso # (Auto) 0.1 th/mm3 (0.0-0.2); Eos # (Auto) 0.2 th/mm3 (0.0-0.4); Eos % (Auto) 3.1 % (0.0-4.0); Hematocrit 37.4 % (35.0-46.0); Hemoglobin 12.2 gm/dL (11.6-15.3); Lymph # (Auto) 1.6 th/mm3 (1.0-4.8); Lymph % (Auto) 28.9 % (9.0-44.0); Mean Corpuscular HGB Conc 32.8 % (32.0-36.0); Mean Corpuscular Volume 91.6 fL (80.0-100.0); Mean Platelet Volume 8.6 fL (7.0-11.0); Mono # (Auto) 0.6 th/mm3 (0.0-0.9); Mono % (Auto) 10.3 % (0.0-8.0); Neut # (Auto) 3.1 th/mm3 (1.8-7.7); Neut % (Auto) 56.7 % (16.0-70.0); Platelet Count 243 th/mm3 (150-450); Red Blood Count 4.08 mil/mm3 (4.00-5.30); Red Cell Distribution Width 13.1 % (11.6-17.2); White Blood Count 5.4 th/mm3 (4.0-11.0)
[2018-03-25 20:55] LABS: Albumin 3.6 g/dL (3.4-5.0); Anion Gap 7 meq/L (5-15); Aspartate Aminotransferase 17 U/L (15-37); Blood Urea Nitrogen 23 mg/dL (7-18); Carbon Dioxide 28.4 meq/L (21.0-32.0); Chloride 102 meq/L (98-107); Glomerular Filtration Rate 50 mL/min (>89); Glucose,Random 89 mg/dL (74-106); Potassium 4.2 meq/L (3.5-5.1); Sodium 137 meq/L (136-145)
[2018-03-25 20:56] LABS: Alanine Aminotransferase 17 U/L (10-53)
[2018-03-25 20:58] LABS: Alkaline Phosphatase 79 U/L (45-117); Total Protein 7.1 g/dL (6.4-8.2)
--- NOTE | 2018-03-26 09:27 | P.TTN ---
- Patient Problems Problems: 1. Discharge planning 2. Medication compliance 3. Knowledge deficit 4. Lack of coping skills - Progress Toward Goals Provider Present: Dr. Ang Massey Provider Input: 03/26/2018; no medication changes at this time; patient remaining monitored on present medication regiment. 03/22/2018: no med adjustment at this time. 03/19/2018; per doctor patient's meds are bieng adjusted Nurse(s) Present: RN Nurse Input: 03/26/2018; patient continuing to present well on unit, patient is continuing to eat and drink well, patient continuing compliance with medication. 03/22/2018; no behavior, patient is eating meals, and taking her medication. 03/19/2018; patient's medication are being adjusted to address her mood Psychiatric Counselors Present: Sandee Purdy [facility] Psychiatric Therapist Input: 03/26/2018; counselor continuing to provide support to family, specifically patient's daughter who is reportedly exploring assisted living options for patient. Patient's daughter reportedly completed all but one document at this time for patient to be evaluated for placement with [facility]. Counselor continuing to provide support to family. 03/22/2018; counselor will assist family, and DCF with placement. 03/19/2018: counselor will be contacting family and DCF to address dc planning and safety concerns Group Spec/RT/OT/ASHER Present: LB Pichardo Group Spec/RT/OT/ASHER Input: 03/26/2018; patient continuing to participate with limited activities, patient is found to socialize on the unit. 03/22/2018; patient participate with limited activities. 03/19/2018; patient has not participate with groups or activities - Documentation Teaching Recipient: Patient
[2018-03-26] MEDS: QUEtiapine 25 MG Tablet PO SCH ×2 (09:50→20:32)
[2018-03-26] MEDS: Carvedilol 6.25 MG Tablet PO SCH (09:50)
[2018-03-26] MEDS: Pantoprazole Sodium 20 MG DR Tablet PO SCH (09:50)
[2018-03-26] MEDS: Senna/Docusate Sodium 8.6/50 MG Tablet PO SCH ×2 (09:50→20:31)
--- NOTE | 2018-03-26 14:48 | P.PN ---
Subjective Interval history: Follow-up visit for vertigo, pre-DM and dementia. Nurse reports + orthostatics with BP checks today, patient with no complaints of dizziness today per nurse. Patient is seen and examined in her room, and appears to be in no acute distress. She does complain of a rash that is on both of her breast, states this has been present since she was diagnosed with cancer many years ago. She states that a cream will usually resolve this. She also reports dizziness yesterday, none today. States that dizziness happens when she is walking, but also feels this may be related to her anxiety. She tells me that at home her has bee talking to a younger lady and this has caused some of her anxiety. She denies any headaches, fevers, chills, N/V/D, chest pain or palpitations. Physical Exam Vital signs: Vital Signs 03/25/18 17:47 03/25/18 17:51 03/25/18 17:53 Temperature Pulse Rate 88 76 Respiratory Rate 18 18 18 Blood Pressure 142/95 H 162/74 H 159/70 H Pulse Oximetry 03/26/18 05:56 Temperature 98.6 F Pulse Rate 81 Respiratory Rate 18 Blood Pressure 160/77 H Pulse Oximetry 94 L Intake & Output 03/25/18 03/26/18 03/26/18 18:59 06:59 18:59 Intake Total 660 / 660 240 / 240 Balance 660 / 660 240 / 240 Intake: Oral 660 / 660 240 / 240 Oral Supplement 0 / 0 Other: # Voids 3 2 # Bowel Movements 0 Narrative: GENERAL: Well-nourished, well-developed adult female in no obvious distress. SKIN: Warm and dry. Erythema with delineation under breast right at skin to skin contact areas, appears yeast related. HEAD: Atraumatic. Normocephalic. CARDIOVASCULAR: Regular rate and rhythm. RESPIRATORY: No accessory muscle use. Clear to auscultation. Breath sounds equal bilaterally. GASTROINTESTINAL: Abdomen soft, non-tender, non-distended. Positive bowel sounds. MUSCULOSKELETAL: Extremities without clubbing, cyanosis, or edema. No obvious deformities. NEUROLOGICAL: Awake and alert. No obvious cranial nerve deficits. Motor grossly within normal limits. Normal speech. PSYCHIATRIC: Very poor historian Results - Labs CBC & Chem 7: 03/25/18 20:15 03/25/18 20:15 Laboratory Results - last 24 hr 10/29/18 10/29/18 20:15 20:15 WBC 5.4 RBC 4.08 Hgb 12.2 Hct 37.4 MCV 91.6 MCH 30.0 MCHC 32.8 RDW 13.1 Plt Count 243 MPV 8.6 Neut % (Auto) 56.7 Lymph % (Auto) 28.9 Borden % (Auto) 10.3 H Eos % (Auto) 3.1 Baso % (Auto) 1.0 Neut # (Auto) 3.1 Lymph # (Auto) 1.6 Borden # (Auto) 0.6 Eos # (Auto) 0.2 Baso # (Auto) 0.1 WBC Differential . Differential Comment Auto diff final Sodium 137 Potassium 4.2 Chloride 102 Carbon Dioxide 28.4 Anion Gap 7 BUN 23 H Creatinine 1.08 H Estimated GFR 50 L Random Glucose 89 Calcium 9.0 Total Bilirubin 0.4 AST 17 ALT 17 Alkaline Phosphatase 79 Total Protein 7.1 Albumin 3.6 Assessment and Plan - Assessment (1) Hypokalemia Code(s): E87.6 - Hypokalemia Status: Acute (2) UTI (urinary tract infection) Code(s): N39.0 - Urinary tract infection, site not specified Status: Acute (3) Alzheimer's disease with late onset Code(s): G30.1 - Alzheimer's disease with late onset; F02.80 - Dementia in other diseases classified elsewhere without behavioral disturbance Status: Acute (4) Vertigo Code(s): R42 - Dizziness and giddiness Status: Acute (5) Unstable gait Code(s): R26.81 - Unsteadiness on feet Status: Acute (6) Heart palpitations Code(s): R00.2 - Palpitations Status: Acute - Plan 73-year-old female with past medical history significant for breast cancer and Alzheimer's dementia who was brought to the emergency department under [place] act after patient became aggressive at home. [facility] consulted to assist with medical management, decreased GFR and diabetes mellitus. Vertigo with unstable gait and palpitations -Likely benign proximal vertigo vs orthostatic hypotension vs anxiety related - +orthostatics, decrease Coreg dose, treat only sitting BP's, discussed precautions with patient - EKG with left BBB and possible atrial enlargement, not acutely changes compared to prior EKG -PT consult, recommends home with no PT recommendations. Alzheimer's dementia -Patient placed under [place] act due to aggressive behavior and brought to [place] for further psychiatric evaluation, treatment plan per psychiatry greatly appreciated Pre-diabetes mellitus Hemoglobin A1c on 03/17 was 6.0 -Patient can continue metformin -Avoid use if GFR is <30 -Diabetic diet HTN HLD -Continue Cozaar, Lipitor, and ASA. Dose of Coreg decreased to 3.25mg BID, treat only sitting BP's -Monitor BP/HR and adjust meds accordingly Urinary tract infection -UA positive for pansensitive E. coli -Patient asymptomatic, afebrile -Complete oral dose of Keflex DVT prophylaxisambulation Discussed Condition With: Patient and RN (3) Alzheimer's disease with late onset Qualifiers: Dementia behavioral disturbance: with behavioral disturbance Qualified Code(s ): G30.1 - Alzheimer's disease with late onset; F02.81 - Dementia in other diseases classified elsewhere with behavioral disturbance
--- NOTE | 2018-03-26 14:52 | ECG ---
Date Performed: 03/25/2018 Time Performed: 18:33:42 PTAGE: 73 years EKG: Sinus rhythm POSSIBLE LEFT ATRIAL ENLARGEMENT MARKED LEFT AXIS DEVIATION LEFT BUNDLE BRANCH BLOCK Since the previ ous tracing, no significant change noted ABNORMAL ECG PREVIOUS TRACING : 03/18/2018 14.21 DOCTOR: Erich Stovall Interpretating Date/Time 03/26/2018 14:49:04
--- NOTE | 2018-03-26 15:01 | P.PNPSY ---
Subjective Chief Complaint: Chacko Act Remarks: Patient seen and examined with nurse. Chart reviewed. Orthostatic vital signs reviewed; these were positive for orthostasis. Case discussed with nursing staff. No reported behavioral issues. Case discussed with treatment team. Therapist continues to work with family on placement. On my exam, patient remains somewhat discharge focused. She is calm and confused as at recent baseline. She expresses concern that a woman at their condo is trying to take care of her . Support provided. No reported side effects from medications. No physical complaints today. Case discussed briefly with mid- level provider from hospitalist service. Vital Signs Temp Pulse Resp BP Pulse Ox 03/26/18 05:56 98.6 F 81 18 160/77 H 94 L 03/25/18 17:53 76 18 159/70 H 03/25/18 17:51 88 18 162/74 H 03/25/18 17:47 18 142/95 H Intake and Output 03/26/18 03/26/18 03/26/18 06:59 14:59 22:59 Intake Total 240 / 240 Balance 240 / 240 Intake: Oral 240 / 240 Oral Supplement 0 / 0 Other: # Voids 2 # Bowel Movements 0 Laboratory Results - last 24 hr 03/25/18 03/25/18 20:15 20:15 WBC 5.4 RBC 4.08 Hgb 12.2 Hct 37.4 MCV 91.6 MCH 30.0 MCHC 32.8 RDW 13.1 Plt Count 243 MPV 8.6 Neut % (Auto) 56.7 Lymph % (Auto) 28.9 [place] % (Auto) 10.3 H Eos % (Auto) 3.1 Baso % (Auto) 1.0 Neut # (Auto) 3.1 Lymph # (Auto) 1.6 [place] # (Auto) 0.6 Eos # (Auto) 0.2 Baso # (Auto) 0.1 WBC Differential . Differential Comment Auto diff final Sodium 137 Potassium 4.2 Chloride 102 Carbon Dioxide 28.4 Anion Gap 7 BUN 23 H Creatinine 1.08 H Estimated GFR 50 L Random Glucose 89 Calcium 9.0 Total Bilirubin 0.4 AST 17 ALT 17 Alkaline Phosphatase 79 Total Protein 7.1 Albumin 3.6 Labs reviewed. GFR within recent range. CMP otherwise unremarkable. CBC unremarkable. Review of Systems All other systems reviewed negative except as stated in HPI (Limitation: Poor historian) Mental Status Examination Appearance: Appropriate Consciousness: Alert Orientation: Person, Place (At least) Motor Activity: Normal gait, Other (No abnormal motor movements noted) Speech: Unremarkable Language: Other (Somewhat rambling) Fund of Knowledge: Inadequate Attention and Concentration: Inadequate Memory: Impaired Mood: Appropriate Affect: Appropriate Thought Process & Associations: Circumstantial (Again in setting of dementia) Thought Content: Other (Poverty of thought) Hallucination Type: None Delusion Type: None Suicidal Ideation: No Homicidal Ideation: No Insight: Poor Judgment: Poor Assessment and Plan - Assessment (1) Dementia with behavioral disturbance Code(s): F03.91 - Unspecified dementia with behavioral disturbance Status: Acute - Plan Plan: Continue Seroquel as ordered. Hospitalist input noted and appreciated. I note that Coreg dose has been adjusted. Continue to monitor on the inpatient unit. Continue other medications and care as ordered. Justification for Continued Inpatient Stay: Risk for decompensation in less restrictive environment. Discharge Planning: Placement. Request Healthcare Surrogate/Guardian Advocate?: Yes (1) Dementia with behavioral disturbance Qualifiers: Dementia type: Alzheimer's disease Alzheimer's disease onset: late-onset Qualified Code(s): G30.1 - Alzheimer's disease with late onset; F02.81 - Dementia in other diseases classified elsewhere with behavioral disturbance
[2018-03-26] MEDS: Melatonin 5 MG Tablet PO PRN (20:31)
[2018-03-27] MEDS: Pantoprazole Sodium 20 MG DR Tablet PO SCH (09:32)
[2018-03-27] MEDS: QUEtiapine 25 MG Tablet PO SCH ×2 (09:32→20:36)
[2018-03-27] MEDS: Senna/Docusate Sodium 8.6/50 MG Tablet PO SCH ×2 (09:32→20:37)
--- NOTE | 2018-03-27 10:00 | P.PNPSY ---
Subjective Chief Complaint: Chacko Act Remarks: Patient seen and examined with nurse. Chart reviewed. Case discussed with nursing staff. Case discussed with counselor who continues to work with family on placement for the patient. On my examination today, the patient is sitting in the day area. She wishes to conduct the interview there. Her affect is somewhat more dysphoric today, although she does complement the staff as being "very good people." No side effects from medications. No physical complaints today. Vital Signs Temp Pulse Resp BP Pulse Ox 03/27/18 05:54 91/50 L 03/27/18 05:52 98.8 F 90 18 135/64 94 L 03/26/18 17:37 99.0 F 73 18 146/67 H 95 Intake and Output 03/26/18 03/27/18 03/27/18 22:59 06:59 14:59 Intake Total 1560 / 1560 340 / 340 840 / 840 Balance 1560 / 1560 340 / 340 840 / 840 Intake: Oral 1560 / 1560 240 / 240 840 / 840 Oral Supplement 100 / 100 Other: # Voids 3 1 # Bowel Movements 0 Labs reviewed. No new labs. Review of Systems All other systems reviewed negative except as stated in HPI (Limitation: Poor historian) Mental Status Examination Appearance: Appropriate Consciousness: Alert Orientation: Person, Place (At least) Motor Activity: Normal gait, Other (No motor abnormalities noted) Speech: Unremarkable Language: Other (Remains a little rambling.) Fund of Knowledge: Inadequate Attention and Concentration: Inadequate Memory: Impaired Mood: Appropriate Affect: Other (Somewhat more dysphoric today.) Thought Process & Associations: Circumstantial (Again in setting of dementia) Thought Content: Other (Poverty of thought) Hallucination Type: None Delusion Type: None Suicidal Ideation: No Homicidal Ideation: No Insight: Poor Judgment: Poor Assessment and Plan - Assessment (1) Dementia with behavioral disturbance Code(s): F03.91 - Unspecified dementia with behavioral disturbance Status: Acute - Plan Plan: Continue Seroquel as ordered. Continue to monitor on the inpatient unit. Hospitalist input noted and appreciated. Continue other medications and care as ordered. Justification for Continued Inpatient Stay: Risk for decompensation in less restrictive environment. Discharge Planning: Counselor working with family on placement Request Healthcare Surrogate/Guardian Advocate?: Yes (1) Dementia with behavioral disturbance Qualifiers: Dementia type: Alzheimer's disease Alzheimer's disease onset: late-onset Qualified Code(s): G30.1 - Alzheimer's disease with late onset; F02.81 - Dementia in other diseases classified elsewhere with behavioral disturbance
--- NOTE | 2018-03-27 10:43 | P.PN ---
Subjective Interval history: Follow-up visit for vertigo and orthostatic hypotension. Patient seen and examined in the day room in no acute distress. She reports that she is doing well today and denies any dizziness, lightheadedness or vertigo. She voices no acute concerns or complaints at the moment. Physical Exam Vital signs: Vital Signs 03/26/18 17:37 03/27/18 05:52 03/27/18 05:54 Temperature 99.0 F 98.8 F Pulse Rate 73 90 Respiratory Rate 18 18 Blood Pressure 146/67 H 135/64 91/50 L Pulse Oximetry 95 94 L Intake & Output 03/26/18 03/27/18 03/27/18 18:59 06:59 18:59 Intake Total 1560 / 1560 340 / 340 600 / 600 Balance 1560 / 1560 340 / 340 600 / 600 Intake: Oral 1560 / 1560 240 / 240 600 / 600 Oral Supplement 100 / 100 Other: # Voids 3 1 # Bowel Movements 0 Narrative: GENERAL: Well-nourished, well-developed adult female in no obvious distress. SKIN: Warm and dry. HEAD: Atraumatic. Normocephalic. CARDIOVASCULAR: Regular rate and rhythm. RESPIRATORY: No accessory muscle use. Clear to auscultation. Breath sounds equal bilaterally. MUSCULOSKELETAL: Extremities without clubbing, cyanosis, or edema. No obvious deformities. NEUROLOGICAL: Awake and alert. No obvious cranial nerve deficits. Motor grossly within normal limits. Normal speech. PSYCHIATRIC: Very poor historian Results - Labs CBC & Chem 7: 03/25/18 20:15 03/25/18 20:15 Assessment and Plan - Assessment (1) Hypokalemia Code(s): E87.6 - Hypokalemia Status: Acute (2) UTI (urinary tract infection) Code(s): N39.0 - Urinary tract infection, site not specified Status: Acute (3) Alzheimer's disease with late onset Code(s): G30.1 - Alzheimer's disease with late onset; F02.80 - Dementia in other diseases classified elsewhere without behavioral disturbance Status: Acute (4) Vertigo Code(s): R42 - Dizziness and giddiness Status: Acute (5) Unstable gait Code(s): R26.81 - Unsteadiness on feet Status: Acute (6) Heart palpitations Code(s): R00.2 - Palpitations Status: Acute - Plan 73-year-old female with past medical history significant for breast cancer and Alzheimer's dementia who was brought to the emergency department under Hcacko act after patient became aggressive at home. [facility] consulted to assist with medical management, decreased GFR and diabetes mellitus. Vertigo with unstable gait and palpitations -Likely benign proximal vertigo vs orthostatic hypotension vs anxiety related - +orthostatics, decrease Coreg dose, treat only sitting BP's, discussed precautions with patient - EKG with left BBB and possible atrial enlargement, not acutely changes compared to prior EKG -PT consult, recommends home with no PT recommendations. -Orthostatic BPs taken once again this morning were positive, hold Cozaar and continue monitoring BP use. -No complaints today Alzheimer's dementia -Patient placed under Chacko act due to aggressive behavior and brought to [place] for further psychiatric evaluation, treatment plan per psychiatry greatly appreciated Pre-diabetes mellitus Hemoglobin A1c on 03/17 was 6.0 -Patient can continue metformin -Avoid use if GFR is <30 -Diabetic diet HTN HLD -Continue Lipitor, and ASA. Dose of Coreg decreased to 3.25mg BID, treat only sitting BP's -Cozaar placed on hold due to positive orthostatic BPs -Monitor BP/HR and adjust meds accordingly Urinary tract infection -UA positive for pansensitive E. coli -Patient asymptomatic, afebrile -Complete oral dose of Keflex DVT prophylaxisambulation (3) Alzheimer's disease with late onset Qualifiers: Dementia behavioral disturbance: with behavioral disturbance Qualified Code(s ): G30.1 - Alzheimer's disease with late onset; F02.81 - Dementia in other diseases classified elsewhere with behavioral disturbance
--- NOTE | 2018-03-28 08:04 | P.PNADD ---
Addendum to Inpatient Note Reason for Addendum: Additional Documentation Additional information: Patient with + orthostatic BP, medications adjusted with improvement to BP. She should continue only Coreg 3.125 BID and stop Cozaar. She should follow-up with her PCP for further monitoring of BP. She is medically clear for discharge.
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
[2018-03-28] MEDS: Pantoprazole Sodium 20 MG DR Tablet PO SCH (08:21)
[2018-03-28] MEDS: Senna/Docusate Sodium 8.6/50 MG Tablet PO SCH (08:22)
[2018-03-28] MEDS: QUEtiapine 25 MG Tablet PO SCH (08:23)
== END 2018-03-28 11:10 ==
LOC: NEDAMB 20:46 → NEDA 03-17 08:52 → H250 03-17 12:04
PROVIDERS: ADMIT Psychiatry & Neurology Psychiatry; ATTEND Psychiatry & Neurology Psychiatry